=== PATIENT | female | born 1935 | race Caucasian/White ===

== ENCOUNTER 2017-03-21 20:22 | Emergency (ER) | payer MEDICARE, OTHER ==
--- NOTE | 2017-03-21 20:51 | ERNOTE ---
Back Pain ER HPI Time Seen by Provider: 03/21/17 20:40 Source: patient, family Immunizations: IMMUNIZATION HX Immunizations Up to Date No History of Influenza Vaccine No Hx Pneumococcal Vaccination No Allergies/Adverse Reactions: Allergies alendronate sodium [From Fosamax] Allergy (Verified 03/21/17 20:41) clindamycin HCl [From Cleocin] Allergy (Verified 03/21/17 20:41) clindamycin palmitate HCl [From Cleocin] Allergy (Verified 03/21/17 20:41) clindamycin phosphate [From Cleocin] Allergy (Verified 03/21/17 20:41) metronidazole [From Flagyl] Allergy (Verified 03/21/17 20:41) Sulfa (Sulfonamide Antibiotics) Allergy (Verified 03/21/17 20:41) Home Medications: HOME MEDICATIONS Clopidogrel Bisulfate [Clopidogrel] 75 mg PO DAILY 10/15/13 [Last Taken Unknown] Isosorbide Mononitrate [Imdur] 60 mg PO BID 10/15/13 [Last Taken Unknown] Lovastatin 40 mg PO HS 10/15/13 [Last Taken Unknown] Metoprolol Tartrate [Lopressor] 50 mg PO BID 10/15/13 [Last Taken Unknown] Nitroglycerin [Nitrostat] 0.4 mg SL [id number] PRN 10/15/13 [Last Taken Unknown] Polyethylene Glycol 3350 [Miralax] 1 appl PO DAILY 10/15/13 [Last Taken Unknown] Topiramate [Topamax] 50 mg PO BID 10/15/13 [Last Taken Unknown] Aspirin/Calcium Carbonate/Mag [Aspirin Buffered 325 mg Tab] 325 mg PO DAILY 10/02 [Last Taken Unknown] Cholecalciferol (Vitamin D3) [Vitamin D3] 1,000 unit PO DAILY 08/29/14 [Last Taken Unknown] Cyanocobalamin [Vitamin B-12] 1,000 mcg PO DAILY 08/29/14 [Last Taken Unknown] Levothyroxine Sodium [Synthroid] 50 mcg PO DAILY 08/29/14 [Last Taken Unknown] Famotidine [Pepcid] 40 mg PO DAILY 04/30/15 [Last Taken Unknown] glipiZIDE [Glucotrol Xl] 5 mg PO DAILY 04/30/15 [Last Taken Unknown] Ranitidine HCl [Zantac] 150 mg PO BID #60 tab 05/03/16 [Last Taken Unknown] Folic Acid 1 mg PO DAILY 06/03/16 [Last Taken Unknown] diphenhydrAMINE HCL [Benadryl Elixir] 2.5 ml PO Q6H PRN #120 ml 06/03/16 [Last Taken Unknown] metFORMIN HCL [Metformin HCl ER] 500 mg PO BID 09/07/16 [Last Taken Unknown] tiZANidine HCL [Tizanidine HCl] 2 mg PO TID PRN 09/07/16 [Last Taken Unknown] HYDROmorphone HCL [Dilaudid] 1 mg PO QID PRN #30 tab 11/07/16 [Last Taken Unknown] Narrative: pt slipped two days ago but did NOT fall. since then she has had some back pain since then in the mid/low back region. 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 pain is constant and she has no dysuria hematuria or urinary urgency. Review of Systems - Review of Systems Constitutional: Present: no symptoms reported EYE: Present: no symptoms reported ENT: Present: no symptoms reported Respiratory: Present: no symptoms reported Cardiology: Present: no symptoms reported Gastrointestinal/Abdominal: Present: no symptoms reported Genitourinary: Present: no symptoms reported Musculoskeletal: Present: See HPI - Patient's Past Medical History Patient History - Medical: Chronic Pain, Diabetes Type 2, GERD, Headache, Osteoarthritis, Osteoporosis, Other Patient History - Cardiac/Respiratory: Hypertension, Hyperlipidemia, Myocardial Infarction Patient History - Cancer: Skin Patient History - Surgical Procedures: Appendectomy, Back Surgery, Cataracts, Cholecystectomy, Colonoscopy, Cardiac stent, D & C, EGD, T & A, Other Patient History - Other: None LMP (females 10-50): Menopausal - Social History Living Situations: home Abuse History: No History of abuse Psych History: No pertinent hx Does anyone smoke in the home?: No Alcohol Use: none Drug Use: none - Immunizations Immunizations Up to Date: No Hx Pneumococcal Vaccination: No History of Influenza Vaccine: No Physical Exam - Physical Exam General Appearance: Present: wd/wn, alert, no apparent distress - thin and pale but in no distress Ears, Nose, Throat: Present: normal ENT inspection, normal except - - she appears to have tremors of the lips like tardive dyskenesia but when asked she states it is normal for her Neck: Present: normal inspection, nontender Respiratory: Present: no respiratory distress, normal breath sounds, no accessory muscle use Cardiovascular/Chest: Present: regular rate, rhythm, no murmur, normal peripheral pulses Back Exam: Present: normal inspection, normal range of motion - tender when I palpate the lumbar and thoracic areas but no crepitus or step off or bruising noted. Extremity Exam: Present: normal inspection ED Progress - Vital Signs Patient's Vital Signs:: I have reviewed the patient's vital signs. Vital Signs: Vital Signs 03/21/17 20:35 Temperature 37.3 C Pulse Rate 73 Respiratory 16 Rate Blood Pressure 162/71 O2 Sat by Pulse 100 Oximetry - X-Ray X-Ray #1 X-Ray: thoracic and lumbar Xray - DJD no fractures Interpretation: Interp. by me - Progress/Reassessment Chief Complaint: Back Pain Departure Clinical Impression: Back pain Qualifiers: Back pain location: low back pain Chronicity: chronic Back pain laterality: bilateral Sciatica presence: without sciatica Qualified Code(s): M54.5 - Low back pain; G89.29 - Other chronic pain - Departure Disposition: Home self-care Condition: Good Referrals: William Bueno MD [Primary Care Provider] -
--- OUTSIDE RECORDS SUMMARY | 2017-03-21 21:06 | XMS REPORT | Continuity of Care Document ---
:1935 Author Organization [facility] ([facility]) Address [address] [place] [address] Phone [phone] Care Team Providers Name Role Phone William Pugh Primary Care Provider [phone] Source Comments This disclosure is being made pursuant to the Care Everywhere program, applicable federal and state laws, and may not contain all informaitonavailable regarding this patient.[facility] ([facility]) Active Allergies and Adverse Reactions Allergen Noted Date Severity Reactions Comments Acetaminophen 04/12/2010 Pruritus Hydrocodone 04/12/2010 Pruritus Methocarbamol 04/12/2010 Pruritus Metronidazole 04/12/2010 Pruritus,Chest pain Morphine 04/12/2010 Pruritus Naproxen Sodium 04/19/2010 Pruritus Oxycodone 04/12/2010 Pruritus Pentazocine Lactate 04/12/2010 Pruritus Propoxyphene 04/12/2010 Pruritus Sulfa (Sulfonamide Antibiotics) 04/12/2010 Pruritus Sulfacetamide Sodium 04/12/2010 Pruritus Tramadol 04/12/2010 Pruritus Current Medications Prescription Sig. Disp. Refills Start Date End Date Status aspirin 81 mg tablet Take 81 mg by mouth Active daily. clopidogrel (PLAVIX) Take 75 mg by mouth Active 75 mg tablet daily. furosemide (LASIX) 20 Take 20 mg by mouth Active mg tablet 2 times daily. glyBURIDE (DIABETA) 5 Take 5 mg by mouth Active mg tablet every morning with breakfast. isosorbide Take 60 mg by mouth Active mononitrate (IMDUR) Every morning. 60 mg CR tablet lovaSTATIN (MEVACOR) Take 40 mg by mouth Active 40 mg tablet every evening. metFORMIN (GLUCOPHAGE Take 500 mg by mouth Active XR) 500 mg XR tablet daily. metoPROLol (TOPROL Take 50 mg by mouth Active XL) 50 mg XL tablet daily. nitroglycerin place 0.4 mg under Active (NITROSTAT) 0.4 mg SL the tongue every 5 tablet minutes as needed. polyethylene glycol Take 17 g by mouth Active 3350 (MIRALAX) 17 daily. gram packet gatifloxacin (ZYMAR) instill 1 Drop onto 1 Bottle 0 04/19/2010 Active 0.3 % ophthalmic the right eye 4 solution times daily. Indications: post-op brimonidine (ALPHAGAN instill 1 Drop onto 1 Bottle 1 04/20/2010 Active P) 0.1 % ophthalmic the right eye 3 solution times daily. Indications: Ocular Hypertension HYDROcodone-acetamino Take 1 Tab by mouth 10 Tab 0 04/20/2010 Active phen (LORTAB) 5-500 every 6 hours as mg per tablet needed. Indications: Pain prednisoLONE acetate instill 1 Drop onto Active (PRED FORTE) 1 % the right eye every ophthalmic suspension 1 hour. Active Problems Not on file Social History Tobacco Use Types Packs/Day Years Used Date Never Smoker Alcohol Use Drinks/Week oz/Week Comments No Last Filed Vital Signs Vital Sign Reading Time Taken Blood Pressure 148/64 04/19/2010 4:30 PM CDT Pulse 64 04/19/2010 4:30 PM CDT Temperature 36.2 C (97.2 F) 04/19/2010 1:05 PM CDT Respiratory Rate 16 04/19/2010 4:30 PM CDT Height 1.56 m (5' 1.42") 04/19/2010 8:31 AM CDT Weight 66.679 kg (147 lb) 04/19/2010 8:31 AM CDT Body Mass Index 27.4 04/19/2010 8:31 AM CDT Oxygen Saturation 91% 04/19/2010 3:00 PM CDT Plan of Care Health Maintenance Due Date Last Done Comments Hepatitis B Vaccine (1 of 3 - Primary Series) 1935 Tdap Vaccine 1946 Lipid Disorder Screening 1954 Td Vaccine 1953 Colonoscopy 1986 Zoster Vaccine 1996 Osteoporosis Screening (DXA Bone Density) 2001 Pneumococcal Vaccine (1 of 2 - PCV13) 2001 Influenza Vaccine: Seasonal (#1) 06/19/2016 Results from Last 3 Months Not on file
--- OUTSIDE RECORDS SUMMARY | 2017-03-21 21:06 | XMS REPORT | Continuity of Care Document ---
:1935 Author Organization [facility] [place] [address] Care Team Providers Name Role Phone William Pugh Primary Care Provider [phone] Source Comments This disclosure is being made pursuant to the GEOCOMtms program and may contain all information available regarding this patient.[facility] Active Allergies and Adverse Reactions Allergen Noted Date Severity Reactions Comments Acetaminophen 12/27/2016 Low Itching Gabapentin 12/27/2016 Low Diarrhea Hydrocodone 12/27/2016 Low Itching Methocarbamol 12/27/2016 Low Itching Metronidazole 01/27/2015 Low Itching,Rash AKA flagyl Morphine 12/27/2016 Low Itching Naproxen Sodium 12/27/2016 Low Itching Oxycodone 12/27/2016 Low Itching Pentazocine Lactate 12/27/2016 Low Itching Propoxyphene 12/27/2016 Low Itching Sulfa Antibiotics 01/27/2015 Low Itching Sulfacetamide Sodium 12/27/2016 Low Itching Tramadol 01/27/2015 Low Itching Current Medications Be aware that medications may not be up to date as of this document. Alwaysverify current medications with the patient. Prescription Sig. Disp. Refills Start Date End Date Status clopidogrel (PLAVIX) 75 Take 75 mg by mouth Active MG tablet daily. topiramate (TOPAMAX) 25 Take 25 mg by mouth Active MG tablet 2 (two) times daily. lovastatin (MEVACOR) 40 Take 40 mg by mouth Active MG tablet nightly. isosorbide mononitrate Take 60 mg by mouth 09/29/2011 Active (IMDUR) 60 MG 24 hr daily. tablet ranitidine (ZANTAC) 150 Take 150 mg by 11/16/2011 Active MG tablet mouth 2 (two) times daily. metFORMIN (GLUCOPHAGE) Take 500 mg by Active 500 MG tablet mouth 2 (two) times daily. levothyroxine (SYNTHROID, Take 25 mcg by Active LEVOTHROID) 25 MCG tablet mouth daily. cyanocobalamin 2000 MCG Take 1 tablet by Active tablet mouth daily. aspirin 325 MG tablet Take 325 mg by Active mouth daily. furosemide (LASIX) 20 MG Take 20 mg by mouth Active tablet daily. FOLIC ACID PO Take by mouth. Active CALCIUM-VITAMIN D PO Take by mouth. Active famotidine (PEPCID) 20 MG 05/20/2016 Active tablet NITROSTAT 0.[address] 1 tablet 11 04/28/2016 Active tablet under tongue every 5 minutes for 3 doses. If no relief call 911 topiramate (TOPAMAX) 50 05/20/2016 Active MG tablet aspirin low dose Chew 81 mg by Active (ASPIRIN) 81 MG CHEW mouth. brimonidine (ALPHAGAN P) 1 drop. 04/20/2010 Active 0.1 % SOLN glyBURIDE (DIABETA) 5 MG Take 5 mg by mouth. Active tablet hydrocodone-acetaminophen Take by mouth. 04/20/2010 Active (VICODIN) 5-500 MG per tablet metoprolol succinate Take 50 mg by Active (TOPROL-XL) 50 MG 24 hr mouth. tablet nitroGLYCERIN (NITROSTAT) Place 0.4 mg under Active 0.3 MG SL tablet the tongue. amitriptyline (ELAVIL) 10 11/27/2016 Active MG tablet doxycycline (MONODOX) 100 Take 100 mg by 0 11/23/2016 Active MG capsule mouth daily. glipiZIDE (GLUCOTROL) 5 12/11/2016 Active MG tablet HYDROmorphone (DILAUDID) Take by mouth 4 0 11/09/2016 Active 2 MG tablet (four) times daily as needed. for pain. mupirocin (BACTROBAN) 2 % APPLY 3 TIMES A DAY 0 10/25/2016 Active ointment polyethylene glycol TAKE ONE CAPFUL BY 11 12/13/2016 Active (MIRALAX) powder MOUTH MIXED IN 8OZ WATER, JUICE, SODA, COFFEE OR TEA TWICE DAILY diphenhydrAMINE Take by mouth 4 Active (BENADRYL) 12.5 MG/5ML (four) times daily elixir as needed for Allergies. glucose blood test strip 1 each by Other Active route as needed for Other. Use as instructed Cholecalciferol (VITAMIN Take by mouth. Active D-3 PO) Active Problems Problem Noted Date Coronary artery disease 03/09/2015 Chest pain 10/15/2013 Overview: Overview: YURI BARR MD Constipation 10/19/2011 Overview: Overview: JARED SIMPSON MD Hyperlipidemia 09/19/2011 Overview: Overview: EDGAR BOWEN CNP Essential hypertension 09/19/2011 Overview: Overview: EDGAR BOWEN CNP Intermediate coronary syndrome (HCC) 09/11/2011 Overview: Overview: YURI BARR MD Most Recent Encounters Date Type Specialty Providers Description 01/01/2017 Orders Only Provider, Not In System 12/27/2016 Initial consult Neurosurgery Analisa Ding NP Spinal stenosis , lumbar region, with neurogenic claudication (Primary Dx); Chronic midline low back pain with left-sided sciatica Social History Tobacco Use Types Packs/Day Years Used Date Never Smoker Last Filed Vital Signs Vital Sign Reading Time Taken Blood Pressure 120/70 12/27/2016 9:56 AM HEBREW CANTOR Pulse 72 12/27/2016 9:56 AM HEBREW CANTOR Temperature 36.1 C (97 F) 12/27/2016 9:56 AM HEBREW CANTOR Respiratory Rate 18 12/27/2016 9:56 AM HEBREW CANTOR Height 1.511 m (4' 11.5") 12/27/2016 9:56 AM HEBREW CANTOR Weight 54.432 kg (120 lb) 12/27/2016 9:56 AM HEBREW CANTOR Body Mass Index 23.84 12/27/2016 9:56 AM HEBREW CANTOR Oxygen Saturation - - Plan of Care Patient Goal Type Goal Blood Pressure Blood Pressure below 140/90 Date Type Specialty Providers Description 04/05/2017 Appointment Cardiology Yuri Barr MD [address] [place] [phone] (Fax) Health Maintenance Due Date Last Done Comments Tetanus/Pertussis (1 - Tdap) 1954 Well Adult Visit 1986 Zoster Vaccine 60+ 1996 Bone Density 2001 Pneumococcal Low/Medium Risk 65+ (1 of 2 - PCV13) 2001 Influenza Immunization (#1) 2016 Results from Last 3 Months Not on file
[2017-03-21] MEDS ORDERED: HYDROcodone/ACETAMINOPHEN 1 EACH TABLET PO ONE (21:38)
[2017-03-21] MEDS ORDERED: HYDROcodone/ACETAMINOPHEN 1 EACH TABLET ONE (21:38)
[2017-03-21 21:51] VITALS: BP 159/69
== END 2017-03-21 21:47 | disposition home or self-care (01) ==
LOC: ER 20:22
DX: M54.5 Low back pain (principal); G89.29 Other chronic pain; Z85.828 Personal history of other malignant neoplasm of skin; W18.40XA Slipping, tripping and stumbling without falling, unspecified, initial encounter; Z91.81 History of falling; Y93.9 Activity, unspecified; Y92.9 Unspecified place or not applicable

== ENCOUNTER 2017-09-01 18:00 | Emergency (ER) | payer MEDICARE, OTHER ==
[2017-09-01] MEDS ORDERED: MORPHINE SULFATE 2 MG/ML DISP.SYRIN IV ONE (18:12)
[2017-09-01] MEDS ORDERED: MORPHINE SULFATE 2 MG/ML DISP.SYRIN ONE (18:13)
--- NOTE | 2017-09-01 18:17 | ERNOTE ---
Upper Extremity HPI - Narrative Date of Service: 09/01/17 - General Time Seen by Provider: 09/01/17 18:05 Source: patient Exam Limitations: no limitations - Immun/Allergies/Home Medications Immunizations: IMMUNIZATION HX Immunizations Up to Date Yes History of Influenza Vaccine No Hx Pneumococcal Vaccination No Allergies/Adverse Reactions: Allergies Allergy/AdvReac Type Severity Reaction Status Date / Time alendronate sodium Allergy Verified 09/01/17 18:11 [From Fosamax] clindamycin HCl Allergy Verified 09/01/17 18:11 [From Cleocin] clindamycin palmitate HCl Allergy Verified 09/01/17 18:11 [From Cleocin] clindamycin phosphate Allergy Verified 09/01/17 18:11 [From Cleocin] metronidazole [From Flagyl] Allergy Verified 09/01/17 18:11 Sulfa (Sulfonamide Allergy Verified 09/01/17 18:11 Antibiotics) Home Medications: HOME MEDICATIONS Aspirin 325 mg PO DAILY 09/01/17 [Last Taken Unknown] Calcium Carbonate [Calcium] 600 mg PO DAILY 09/01/17 [Last Taken Unknown] Cholecalciferol (Vitamin D3) [Vitamin D3] 1,000 unit PO DAILY 09/01/17 [Last Taken Unknown] Clopidogrel Bisulfate [Plavix] 75 mg PO DAILY 09/01/17 [Last Taken Unknown] Cyanocobalamin [Vitamin B-12] 1,000 mcg PO DAILY 09/01/17 [Last Taken Unknown] Diphenhydramine HCl 25 mg PO TID 09/01/17 [Last Taken Unknown] Folic Acid 1 mg PO DAILY 09/01/17 [Last Taken Unknown] HYDROcodone/ACETAMINOPHEN [[place] 5-325] 1 tab PO TID 09/01/17 [Last Taken Unknown] Isosorbide Mononitrate [Imdur] 60 mg PO BID 09/01/17 [Last Taken Unknown] Levothyroxine Sodium [Synthroid] 50 mcg PO DAILY 09/01/17 [Last Taken Unknown] Lovastatin 40 mg PO HS 09/01/17 [Last Taken Unknown] Metoprolol Tartrate [Lopressor] 50 mg PO BID 09/01/17 [Last Taken Unknown] Nitroglycerin [Nitrostat] 0.4 mg SL Q5MIN PRN 09/01/17 [Last Taken Unknown] Polyethylene Glycol 3350 [Miralax] 17 gm PO BID 09/01/17 [Last Taken Unknown] Ranitidine HCl [Zantac] 150 mg PO BID 09/01/17 [Last Taken Unknown] Topiramate [Topamax] 100 mg PO BID 09/01/17 [Last Taken Unknown] glipiZIDE [Glipizide] 0.5 tab PO DAILY 09/01/17 [Last Taken Unknown] - History of Present Illness Narrative: patient comes in for left arm pain which began at 5 pm. she took a nitro and it did not help. She has a very strong history of coronary artery disease status post [place] remotely with multiple stents. Review of Systems - Review of Systems Constitutional: Present: no symptoms reported EYE: Present: no symptoms reported ENT: Present: no symptoms reported Respiratory: Present: no symptoms reported Cardiology: Present: no symptoms reported Gastrointestinal/Abdominal: Present: no symptoms reported Genitourinary: Present: no symptoms reported Musculoskeletal: Present: See HPI - Patient's Past Medical History Patient History - Medical: Chronic Pain, Diabetes Type 2, GERD, Headache, Osteoarthritis, Osteoporosis, Other Patient History - Cardiac/Respiratory: Hypertension, Hyperlipidemia, Myocardial Infarction Patient History - Cancer: Skin Patient History - Surgical Procedures: Appendectomy, Back Surgery, Cataracts, Cholecystectomy, Colonoscopy, Cardiac stent, D & C, EGD, T & A, Other Patient History - Other: None - Social History Living Situations: other Abuse History: No History of abuse Psych History: No pertinent hx Smoking Status: Never smoker Have you smoked in the past 12 months: No Do you dip or chew tobacco: No Alcohol Use: none Drug Use: none - Immunizations Immunizations Up to Date: Yes Hx Pneumococcal Vaccination: No History of Influenza Vaccine: No Physical Exam - Physical Exam General Appearance: Present: wd/wn, alert, no apparent distress Head Exam: Present: normal inspection, no evidence of injury Ears, Nose, Throat: Present: normal ENT inspection Neck: Present: normal inspection, nontender Respiratory: Present: no respiratory distress, normal breath sounds, no accessory muscle use, chest nontender, lungs clear Cardiovascular/Chest: Present: regular rate, rhythm, no murmur, normal peripheral pulses Gastrointestinal/Abdominal: Present: normal bowel sounds, nontender, nondistended Extremity Exam: Present: other - no abnormality noted upon examination of the left upper extremity patient denies any chest pains whatsoever. Neurological Exam: Present: alert, oriented, normal mood/affect ED Progress - Results and Orders Patient's Lab Results:: I have reviewed the patient's lab results. - Vital Signs Patient's Vital Signs:: I have reviewed the patient's vital signs. Vital Signs: Vital Signs 09/01/17 18:05 Temperature 37.4 C Pulse Rate 88 Respiratory 16 Rate Blood Pressure 174/63 O2 Sat by Pulse 98 Oximetry - EKG EKG: NSR - X-Ray X-Ray #3 X-Ray: forearm - Progress/Reassessment Chief Complaint: Upper Extremity Injury/Problem Plan - Plan Plan: This patient's symptoms I doubt are secondary to cardiac etiology. Her EKG is normal chest x-ray normal arm x-ray normal. Her arm pain is completely resolved she never had chest pain or jaw pain. Departure Clinical Impression: Arm pain Qualifiers: Laterality: left Qualified Code(s): M79.602 - Pain in left arm - Departure Disposition: Home self-care Condition: Good Instructions: Osteoarthritis Referrals: William Bueno MD [Primary Care Provider] -
[2017-09-01 18:22] LABS: Hematocrit 33.6 % (37.0-47.0); Hemoglobin 11.1 gm/dL (12.5-16.0); Mean Cell Volume 98.2 fl (78-100); Mean Corpuscular Hemoglobin 32.5 pg (27-31); Mean Platelet Volume 8.3 fl (6.0-9.5); Neutrophil # 3.7 K/mm3 (1.3-6.0); Neutrophil % 50.9 % (42-75.0); Platelet Count 244 K/mm3 (150-450); Red Blood Count 3.42 M/mm3 (4.2-5.4); Red Cell Distribution Width 12.4 % (11.5-14.0); White Blood Count 7.2 K/mm3 (4.0-10.5)
[2017-09-01 18:48] LABS: ALT 20 U/L (19-67); AST 17 U/L (0-48); Albumin * 3.9 gm/dl (3.4-5.0); Alkaline Phosphatase * 100 U/L (50-170); Anion Gap 14.2 mmol/L (6.8-13.8); BUN/Creatinine Ratio 13.1 (9.0-21.6); Bilirubin, Total 0.2 mg/dL (0.0-1.1); Blood Urea Nitrogen 14 mg/dL (3-23); Ca. Corrected For Albumin 8.4 mg/dL (8.4-10.2); Calcium * 8.6 mg/dL (7.9-10.9); Carbon Dioxide 25.5 mmol/L (24-32.6); Chloride 100 mmol/L (97-106); Glucose * 151 mg/dL (70-110); Potassium 3.7 mmol/L (3.4-4.6); Sodium 136 mmol/L (132-142); Total Protein 7.7 gm/dL (6.2-8.2); Troponin I 0.022 ng/ml (0.00-0.10)
[2017-09-01 19:27] VITALS: BP 143/59
== END 2017-09-01 19:19 | disposition home or self-care (01) ==
LOC: ER 18:00
DX: M79.602 Pain in left arm (principal); K21.9 Gastro-esophageal reflux disease without esophagitis; I10 Essential (primary) hypertension; E11.9 Type 2 diabetes mellitus without complications; Z85.820 Personal history of malignant melanoma of skin

== ENCOUNTER 2017-10-22 11:50 | Emergency (ER) | payer MEDICARE, OTHER ==
[2017-10-22 11:58] VITALS: BP 167/69
[2017-10-22 12:17] LABS: Hematocrit 33.2 % (37.0-47.0); Mean Cell Volume 99.4 fl (78-100); Mean Corpuscular Hemoglobin 32.9 pg (27-31); Mean Corpuscular Hgb Conc 33.1 g/dl (32-36); Mean Platelet Volume 8.7 fl (6.0-9.5); Neutrophil # 3.4 K/mm3 (1.3-6.0); Neutrophil % 58.1 % (42-75.0); Platelet Count 195 K/mm3 (150-450); Red Blood Count 3.34 M/mm3 (4.2-5.4); Red Cell Distribution Width 12.2 % (11.5-14.0); White Blood Count 5.9 K/mm3 (4.0-10.5)
[2017-10-22 12:25] LABS: Urine Bilirubin Negative (NEGATIVE); Urine Ketone Negative (NEGATIVE); Urine Protein Negative (NEGATIVE); Urine Specific Gravity 1.015 SP.GR. (1.005-1.010); Urine Urobilinogen Normal (NORMAL)
[2017-10-22 12:32] LABS: Albumin * 3.9 gm/dl (3.4-5.0); Anion Gap 10.9 mmol/L (6.8-13.8); BUN/Creatinine Ratio 11.7 (9.0-21.6); Bilirubin, Total 0.3 mg/dL (0.0-1.1); Ca. Corrected For Albumin 8.1 mg/dL (8.4-10.2); Calcium * 8.3 mg/dL (7.9-10.9); Carbon Dioxide 27.1 mmol/L (24-32.6); Total Protein 7.3 gm/dL (6.2-8.2)
[2017-10-22 12:40] LABS: Urine Appearance Cloudy; Urine Blood 10 /ul (NEGATIVE); Urine Color Yellow; Urine Nitrite Positive (NEGATIVE)
[2017-10-22 12:41] LABS: Urine Bacteria 4+; Urine RBC 0-5 /hpf (0-5); Urine WBC 25-50 /hpf (0-5)
[2017-10-22] MEDS ORDERED: AMOX TR/POTASSIUM CLAVULANATE 875 MG TABLET PO ONE (13:33)
--- NOTE | 2017-10-22 13:35 | ERNOTE ---
Abdominal HPI - General Chief Complaint: Abdominal Pain Time Seen by Provider: 10/22/17 13:22 Source: patient Exam Limitations: no limitations - Immun/Allergies/Home Medications Immunizatons: IMMUNIZATION HX Immunizations Up to Date Yes History of Influenza Vaccine No Hx Pneumococcal Vaccination No Allergies/Adverse Reactions: Allergies alendronate sodium [From Fosamax] Allergy (Verified 10/22/17 11:57) clindamycin HCl [From Cleocin] Allergy (Verified 10/22/17 11:57) clindamycin palmitate HCl [From Cleocin] Allergy (Verified 10/22/17 11:57) clindamycin phosphate [From Cleocin] Allergy (Verified 10/22/17 11:57) metronidazole [From Flagyl] Allergy (Verified 10/22/17 11:57) Sulfa (Sulfonamide Antibiotics) Allergy (Verified 10/22/17 11:57) Home Medications: HOME MEDICATIONS Aspirin 325 mg PO DAILY 09/01/17 [Last Taken Unknown] Calcium Carbonate [Calcium] 600 mg PO DAILY 09/01/17 [Last Taken Unknown] Cholecalciferol (Vitamin D3) [Vitamin D3] 1,000 unit PO DAILY 09/01/17 [Last Taken Unknown] Clopidogrel Bisulfate [Plavix] 75 mg PO DAILY 09/01/17 [Last Taken Unknown] Cyanocobalamin [Vitamin B-12] 1,000 mcg PO DAILY 09/01/17 [Last Taken Unknown] Folic Acid 1 mg PO DAILY 09/01/17 [Last Taken Unknown] HYDROcodone/ACETAMINOPHEN [[place] 5-325] 1 tab PO TID 09/01/17 [Last Taken Unknown] Isosorbide Mononitrate [Imdur] 60 mg PO BID 09/01/17 [Last Taken Unknown] Levothyroxine Sodium [Synthroid] 50 mcg PO DAILY 09/01/17 [Last Taken Unknown] Lovastatin 40 mg PO HS 09/01/17 [Last Taken Unknown] Metoprolol Tartrate [Lopressor] 50 mg PO BID 09/01/17 [Last Taken Unknown] Nitroglycerin [Nitrostat] 0.4 mg SL Q5MIN PRN 09/01/17 [Last Taken Unknown] Polyethylene Glycol 3350 [Miralax] 17 gm PO BID 09/01/17 [Last Taken Unknown] Ranitidine HCl [Zantac] 150 mg PO BID 09/01/17 [Last Taken Unknown] Topiramate [Topamax] 100 mg PO BID 09/01/17 [Last Taken Unknown] glipiZIDE [Glipizide] 0.5 tab PO DAILY 09/01/17 [Last Taken Unknown] Amox Tr/Potassium Clavulanate [Augmentin 875-125 Tablet] 875 mg PO Q12H #20 tab 10/22/17 [Last Taken Unknown] - History of Present Illness Narrative: Patient thinks that she has diverticulitis, she started yesterday morning with lower abdominal pain (left more than right) that reminds her of a prior episode , denies any nausea,vomiting or diarrhea. Date (Duration): 10/21/17 Timing: constant Quality: mild Activities at Onset: none Modifying Factors - (Improves): Present: rest Modifying Factors - (Worsens): Absent: breathing, coughing, movement Associated Symptoms: Absent: headache, back pain, diaphoresis, diarrhea-gross blood, diarrhea-mucous, fever/chills, heartburn, nausea, vomiting, shortness of breath Prior Abdominal Problems: Present: similar symptoms Prior Treatment: Absent: recently seen, currently on antibiotics Review of Systems - Review of Systems Constitutional: Absent: recent illness, fever ENT: Absent: nose congestion, sore throat Respiratory: Absent: shortness of breath Cardiology: Absent: chest pain Gastrointestinal/Abdominal: Present: See HPI, abdominal pain. Absent: nausea Genitourinary: Absent: no symptoms reported Musculoskeletal: Absent: no symptoms reported Skin: Absent: rash Neurological: Absent: headache - Patient's Past Medical History Patient History - Medical: Chronic Pain, Diabetes Type 2, GERD, Headache, Osteoarthritis, Osteoporosis, Other Patient History - Cardiac/Respiratory: Hypertension, Hyperlipidemia, Myocardial Infarction Patient History - Cancer: Skin Patient History - Surgical Procedures: Appendectomy, Back Surgery, Cataracts, Cholecystectomy, Colonoscopy, Cardiac stent, D & C, EGD, T & A, Other Patient History - Other: None - Social History Living Situations: home Abuse History: No History of abuse Psych History: No pertinent hx - Immunizations Immunizations Up to Date: Yes Hx Pneumococcal Vaccination: No History of Influenza Vaccine: No Physical Exam - Physical Exam General Appearance: Present: wd/wn, alert, no apparent distress Respiratory: Present: no respiratory distress, normal breath sounds, no accessory muscle use, lungs clear Cardiovascular/Chest: Present: regular rate, rhythm, no murmur Gastrointestinal/Abdominal: Present: normal bowel sounds, nondistended, soft, tenderness - LLQ (moderate). Absent: guarding, rebound Extremity Exam: Present: no edema Neurological Exam: Present: alert, oriented, normal mood/affect Skin Exam: Present: normal color, warm/dry ED Progress - Results and Orders Patient's Lab Results:: I have reviewed the patient's lab results. - Vital Signs Patient's Vital Signs:: I have reviewed the patient's vital signs. Vital Signs: Vital Signs 10/22/17 11:53 Temperature 36.6 C Pulse Rate 65 Respiratory 12 Rate Blood Pressure 167/69 O2 Sat by Pulse 98 Oximetry - Progress/Reassessment Chief Complaint: Abdominal Pain Progress Note-Subjective: 10/22/17 13:33 discussed diagnosis with patient. As symptoms mild will treat with out patient antibiotics, patient prefers not to have CT at this time. As patient allergic to flagyl will treat with augmentin Departure Clinical Impression: Diverticulitis Qualifiers: Diverticulitis site: unspecified part of intestinal tract Diverticulitis bleeding: without bleeding Diverticulitis complication: unspecified complication status Qualified Code(s): K57.92 - Diverticulitis of intestine, part unspecified, without perforation or abscess without bleeding - Departure Disposition: Home self-care Condition: Stable Instructions: Diverticulitis, [id number] Additional Instructions: follow up with your doctor as scheduled Referrals: William Bueno MD [Primary Care Provider] - Prescriptions: Amox Tr/Potassium Clavulanate [Augmentin 875-125 Tablet] 875 mg PO Q12H #20 tab
[2017-10-22] MEDS ORDERED: AMOX TR/POTASSIUM CLAVULANATE 875 MG TABLET ONE (13:52)
== END 2017-10-22 14:00 | disposition home or self-care (01) ==
LOC: ER 11:50
DX: K57.92 Diverticulitis of intestine, part unspecified, without perforation or abscess without bleeding (principal); Z85.828 Personal history of other malignant neoplasm of skin; E11.9 Type 2 diabetes mellitus without complications; I25.2 Old myocardial infarction; I10 Essential (primary) hypertension; Z95.5 Presence of coronary angioplasty implant and graft; K21.9 Gastro-esophageal reflux disease without esophagitis; E78.5 Hyperlipidemia, unspecified

== ENCOUNTER 2017-11-16 10:36 | Emergency (ER) | payer MEDICARE, OTHER ==
--- NOTE | 2017-11-16 11:36 | ERNOTE ---
Abdominal HPI - Narrative Date of Service: 11/16/17 - General Chief Complaint: Abdominal Pain Time Seen by Provider: 11/16/17 11:23 Source: patient, RN notes reviewed Exam Limitations: no limitations - Immun/Allergies/Home Medications Immunizatons: IMMUNIZATION HX Immunizations Up to Date Yes History of Influenza Vaccine No Hx Pneumococcal Vaccination No Allergies/Adverse Reactions: Allergies metronidazole [From Flagyl] Allergy (Unknown, Verified 11/16/17 10:46) alendronate sodium [From Fosamax] Adverse Reaction (Mild, Verified 11/16/17 10: 46) ABD PAIN clindamycin HCl [From Cleocin] Adverse Reaction (Mild, Verified 11/16/17 10:46) GI UPSET clindamycin palmitate HCl [From Cleocin] Adverse Reaction (Mild, Verified 10:46) GI UPSET clindamycin phosphate [From Cleocin] Adverse Reaction (Mild, Verified 11/16/17 10:46) GI UPSET gabapentin Adverse Reaction (Mild, Verified 11/16/17 10:46) BOWEL INCONTINENCE pregabalin [From Lyrica] Adverse Reaction (Mild, Verified 11/16/17 10:46) LOOSE STOOLS Sulfa (Sulfonamide Antibiotics) Adverse Reaction (Mild, Verified 11/16/17 10:46) Itching tramadol Adverse Reaction (Mild, Verified 11/16/17 10:46) Itching Home Medications: HOME MEDICATIONS Aspirin 325 mg PO DAILY 09/01/17 [Last Taken Unknown] Cholecalciferol (Vitamin D3) [Vitamin D3] 1,000 unit PO DAILY 09/01/17 [Last Taken Unknown] Clopidogrel Bisulfate [Plavix] 75 mg PO DAILY 09/01/17 [Last Taken Unknown] Cyanocobalamin [Vitamin B-12] 1,000 mcg PO DAILY 09/01/17 [Last Taken Unknown] Folic Acid 1 mg PO DAILY 09/01/17 [Last Taken Unknown] HYDROcodone/ACETAMINOPHEN [[place] 5-325] 1 tab PO TID PRN 09/01/17 [Last Taken Unknown] Isosorbide Mononitrate [Imdur] 60 mg PO BID 09/01/17 [Last Taken Unknown] Levothyroxine Sodium [Synthroid] 50 mcg PO DAILY 09/01/17 [Last Taken Unknown] Lovastatin 40 mg PO HS 09/01/17 [Last Taken Unknown] Metoprolol Tartrate [Lopressor] 50 mg PO BID 09/01/17 [Last Taken Unknown] Nitroglycerin [Nitrostat] 0.4 mg SL [id number] PRN 09/01/17 [Last Taken Unknown] Polyethylene Glycol 3350 [Miralax] 17 gm PO BID 09/01/17 [Last Taken Unknown] Ranitidine HCl [Zantac] 150 mg PO BID 09/01/17 [Last Taken Unknown] glipiZIDE [Glipizide] 0.5 tab PO DAILY 09/01/17 [Last Taken Unknown] Blood-Glucose Meter [Blood Glucose Monitoring] 1 each MC DAILY 11/06/17 [Last Taken Unknown] Calcium Carbonate 600 mg PO DAILY 11/06/17 [Last Taken Unknown] Topiramate [Topamax] 25 mg PO BID 11/06/17 [Last Taken Unknown] Topiramate [Topamax] 50 mg PO BID 11/06/17 [Last Taken Unknown] Moxifloxacin HCl [Avelox] 400 mg PO DAILY 11/07/17 [Last Taken Unknown] Ciprofloxacin HCl [Cipro] 500 mg PO BID #14 tablet 11/16/17 [Last Taken Unknown] - Pain Score Pain Score #1 Pain Score: 0 - History of Present Illness Narrative: 82 year old female presents to the ED from home by private vehicle for abdominal pain that began last night. She had diarrhea once last evening and also reports having some nausea at that time. She did not have any pain this morning until she tried to drink some water, which caused pain again. She does not currently have any pain. She has not eaten anything today. Date (Duration): 11/15/17 Timing: resolved prior to arrival Activities at Onset: none Prior Treatment: Absent: currently on antibiotics Review of Systems - Review of Systems Constitutional: Absent: fever, chills, malaise EYE: Present: no symptoms reported ENT: Present: no symptoms reported Respiratory: Absent: shortness of breath, cough Cardiology: Absent: chest pain, edema Gastrointestinal/Abdominal: Present: abdominal pain, eating less, drinking less. Absent: vomiting, constipation Genitourinary: Absent: frequency, dysuria Musculoskeletal: Absent: back pain, muscle pain Skin: Absent: rash, lesions, lumps Neurological: Absent: headache, dizziness/light-headedness Endocrine: Present: no symptoms reported Hematologic/Lymphatic: Present: no symptoms reported Psych: Present: no symptoms reported - Patient's Past Medical History Patient History - Medical: Chronic Pain, Diabetes Type 2, GERD, Headache, Osteoarthritis, Osteoporosis Patient History - Cardiac/Respiratory: Hypertension, Hyperlipidemia, Myocardial Infarction Patient History - Cancer: Skin Patient History - Surgical Procedures: Appendectomy, Back Surgery, Cataracts, Cholecystectomy, Colonoscopy, Cardiac stent, D & C, EGD, T & A, Other Patient History - Other: None - Social History Living Situations: home Abuse History: No History of abuse Psych History: No pertinent hx Alcohol Use: none Drug Use: none - Immunizations Immunizations Up to Date: Yes Hx Pneumococcal Vaccination: No History of Influenza Vaccine: No Physical Exam - Physical Exam General Appearance: Present: wd/wn, alert, no apparent distress Head Exam: Present: normal inspection Neck: Present: normal inspection, nontender, supple, full range of motion Respiratory: Present: no respiratory distress, normal breath sounds, no accessory muscle use, lungs clear Cardiovascular/Chest: Present: regular rate, rhythm, no murmur, normal peripheral pulses Gastrointestinal/Abdominal: Present: normal bowel sounds, nondistended, soft, tenderness - Mild, RUQ and RLQ. Absent: guarding, mass Extremity Exam: Present: normal inspection, non-tender, normal range of motion, no edema Neurological Exam: Present: alert, oriented, normal mood/affect, no motor/ sensory deficits Skin Exam: Present: warm/dry, pallor ED Progress - Results and Orders Patient's Lab Results:: I have reviewed the patient's lab results. - Vital Signs Patient's Vital Signs:: I have reviewed the patient's vital signs. Vital Signs: Vital Signs 11/16/17 10:40 Temperature 36.2 C L Pulse Rate 66 Respiratory 12 Rate Blood Pressure 130/54 O2 Sat by Pulse 96 Oximetry - X-Ray X-Ray #1 X-Ray: abdomen Interpretation: Reviewed by me X-ray Comments: Abdomen Flat W/ Upright *: No subdiaphragmatic free air. Patient has scattered air-fluid levels throughout the nondilated colonic segments diffusely throughout. Patient has multiple radiodensities projecting over the abdomen, 2 in the left upper quadrant, one in the pelvis, and multiple numerous 1's in the right lower quadrant. Osseous structures are intact. Degenerative changes of the thoracolumbar spine and bilateral hips noted. IMPRESSION: 1. Abnormal bowel gas pattern suggestive of colitis or other diarrheal disease. 2. Multiple radiodensities within the abdomen as discussed above. Most likely represents radiodense pill fragments within bowel segments. Clinical correlation is advised. Consider radiographic follow-up to document resolution. Electronically signed by Daljit Marti M.D.. - Progress/Reassessment Chief Complaint: Abdominal Pain Progress:: Unchanged Plan - Plan Plan: Labs unremarkable aside from possible UTI. Patient was just treated for a UTI earlier this month and her repeat UA showed resolution. Will treat pending culture. Departure Clinical Impression: UTI (urinary tract infection) Qualifiers: Urinary tract infection type: site unspecified Hematuria presence: without hematuria Qualified Code(s): N39.0 - Urinary tract infection, site not specified Abdominal pain Qualifiers: Abdominal location: unspecified location Qualified Code(s): R10.9 - Unspecified abdominal pain - Departure Disposition: Home Follow Up Needed Condition: Stable Instructions: Abdominal Pain, Adult, [id number] Additional Instructions: Drink plenty of liquids as discussed Follow up to recheck your urine after finishing antibiotics Return to ER if symptoms worsen Prescriptions: Ciprofloxacin HCl [Cipro] 500 mg PO BID #14 tablet
[2017-11-16 11:46] LABS: Hematocrit 36.3 % (37.0-47.0); Hemoglobin 11.9 gm/dL (12.5-16.0); Mean Cell Volume 101.1 fl (78-100); Mean Corpuscular Hemoglobin 33.1 pg (27-31); Mean Corpuscular Hgb Conc 32.8 g/dl (32-36); Mean Platelet Volume 8.5 fl (6.0-9.5); Neutrophil # 2.6 K/mm3 (1.3-6.0); Neutrophil % 75.7 % (42-75.0); Platelet Count 171 K/mm3 (150-450); Red Blood Count 3.59 M/mm3 (4.2-5.4); Red Cell Distribution Width 12.3 % (11.5-14.0); White Blood Count 3.5 K/mm3 (4.0-10.5)
[2017-11-16 11:54] LABS: Urine Appearance Clear; Urine Bilirubin Negative (NEGATIVE); Urine Blood 5 /ul (NEGATIVE); Urine Color Yellow; Urine Ketone Negative (NEGATIVE); Urine Nitrite Negative (NEGATIVE); Urine Protein 30 mg/dL (NEGATIVE); Urine Urobilinogen Normal (NORMAL); Urine pH 6.5 pH (5.0-7.0)
[2017-11-16 11:55] LABS: Urine Bacteria 1+; Urine RBC 0-5 /hpf (0-5); Urine WBC 0-5 /hpf (0-5)
[2017-11-16 11:59] LABS: Albumin * 3.6 gm/dl (3.4-5.0); Anion Gap 13.4 mmol/L (6.8-13.8); BUN/Creatinine Ratio 16.5 (9.0-21.6); Bilirubin, Total 0.3 mg/dL (0.0-1.1); Ca. Corrected For Albumin 8.1 mg/dL (8.4-10.2); Calcium * 8.1 mg/dL (7.9-10.9); Carbon Dioxide 24.6 mmol/L (24-32.6)
[2017-11-16 12:36] VITALS: BP 130/69
== END 2017-11-16 12:45 | disposition home or self-care (01) ==
LOC: ER 10:36
DX: N39.0 Urinary tract infection, site not specified (principal); R10.9 Unspecified abdominal pain; I25.2 Old myocardial infarction; I10 Essential (primary) hypertension; E78.5 Hyperlipidemia, unspecified; K21.9 Gastro-esophageal reflux disease without esophagitis; E11.9 Type 2 diabetes mellitus without complications; Z85.820 Personal history of malignant melanoma of skin

== ENCOUNTER 2018-01-05 18:18 | Observation (INO) | payer MEDICARE, OTHER ==
[2018-01-05] MEDS ORDERED: ACETAMINOPHEN 500 MG TABLET PO ONE (18:51)
[2018-01-05 19:05] LABS: Hematocrit 33.6 % (37.0-47.0); Hemoglobin 11.4 gm/dL (12.5-16.0); Mean Cell Volume 96.8 fl (78-100); Mean Corpuscular Hemoglobin 32.9 pg (27-31); Mean Corpuscular Hgb Conc 33.9 g/dl (32-36); Mean Platelet Volume 8.8 fl (6.0-9.5); Neutrophil # 5.6 K/mm3 (1.3-6.0); Neutrophil % 72.2 % (42-75.0); Platelet Count 167 K/mm3 (150-450); Red Blood Count 3.47 M/mm3 (4.2-5.4); White Blood Count 7.7 K/mm3 (4.0-10.5)
--- NOTE | 2018-01-05 19:17 | ERNOTE ---
<Malik Murillo - Last Filed: 01/05/18 19:12> Date of Service: 01/05/18 Time Seen by Provider: 01/05/18 18:26 Stated Complaint: COUGH Presenting Symptoms:: cough, fever Source: patient Immunizations: IMMUNIZATION HX Immunizations Up to Date No History of Influenza Vaccine No Hx Pneumococcal Vaccination No Allergies/Adverse Reactions: Allergies metronidazole [From Flagyl] Allergy (Unknown, Verified 11/16/17 10:46) alendronate sodium [From Fosamax] Adverse Reaction (Mild, Verified 11/16/17 10: 46) ABD PAIN clindamycin HCl [From Cleocin] Adverse Reaction (Mild, Verified 11/16/17 10:46) GI UPSET clindamycin palmitate HCl [From Cleocin] Adverse Reaction (Mild, Verified 10:46) GI UPSET clindamycin phosphate [From Cleocin] Adverse Reaction (Mild, Verified 11/16/17 10:46) GI UPSET gabapentin Adverse Reaction (Mild, Verified 11/16/17 10:46) BOWEL INCONTINENCE pregabalin [From Lyrica] Adverse Reaction (Mild, Verified 11/16/17 10:46) LOOSE STOOLS Sulfa (Sulfonamide Antibiotics) Adverse Reaction (Mild, Verified 11/16/17 10:46) Itching tramadol Adverse Reaction (Mild, Verified 11/16/17 10:46) Itching Home Medications: HOME MEDICATIONS Aspirin 325 mg PO DAILY 09/01/17 [Last Taken Unknown] Cholecalciferol (Vitamin D3) [Vitamin D3] 1,000 unit PO DAILY 09/01/17 [Last Taken Unknown] Clopidogrel Bisulfate [Plavix] 75 mg PO DAILY 09/01/17 [Last Taken Unknown] Cyanocobalamin [Vitamin B-12] 1,000 mcg PO DAILY 09/01/17 [Last Taken Unknown] Folic Acid 1 mg PO DAILY 09/01/17 [Last Taken Unknown] Isosorbide Mononitrate [Imdur] 60 mg PO BID 09/01/17 [Last Taken Unknown] Levothyroxine Sodium [Synthroid] 50 mcg PO DAILY 09/01/17 [Last Taken Unknown] Lovastatin 40 mg PO HS 09/01/17 [Last Taken Unknown] Metoprolol Tartrate [Lopressor] 50 mg PO BID 09/01/17 [Last Taken Unknown] Nitroglycerin [Nitrostat] 0.4 mg SL [id number] PRN 09/01/17 [Last Taken Unknown] Polyethylene Glycol 3350 [Miralax] 17 gm PO BID 09/01/17 [Last Taken Unknown] Ranitidine HCl [Zantac] 150 mg PO BID 09/01/17 [Last Taken Unknown] glipiZIDE [Glipizide] 0.5 tab PO DAILY 09/01/17 [Last Taken Unknown] Calcium Carbonate 600 mg PO DAILY 11/06/17 [Last Taken Unknown] Topiramate [Topamax] 100 mg PO BID 11/06/17 [Last Taken Unknown] - History of Present Ilness Narrative: patient has been sick with cough and fever for last several days , sharp chest pain Timing: constant, getting worse Severity: moderate Frequency/Possible Cause: Reports: occasional episodes Modifying Factors - Improves: Reports: rest Modifying Factors - Worsens: Reports: coughing, deep breath Associated Symptoms: Reports: chest pain/soreness, sore throat, muscle aches, fever/chills Review of Systems - Narrative Narrative: unremarkable - Review of Systems Constitutional: Present: See HPI, weakness, fatigue, malaise EYE: Present: no symptoms reported ENT: Present: no symptoms reported Respiratory: Present: See HPI, shortness of breath, cough, wheezing Cardiology: Present: chest pain Gastrointestinal/Abdominal: Present: no symptoms reported Genitourinary: Present: no symptoms reported Musculoskeletal: Present: no symptoms reported Skin: Present: no symptoms reported Neurological: Present: no symptoms reported Endocrine: Present: no symptoms reported Hematologic/Lymphatic: Present: no symptoms reported Psych: Present: no symptoms reported All Other Systems: All systems neg except as marked - Narrative Narrative: unremarkable - Patient's Past Medical History Patient History - Medical: Chronic Pain, Diabetes Type 2, GERD, Headache, Osteoarthritis, Osteoporosis Patient History - Cardiac/Respiratory: Hypertension, Hyperlipidemia, Myocardial Infarction Patient History - Cancer: Skin Patient History - Surgical Procedures: Appendectomy, Back Surgery, Cataracts, Cholecystectomy, Colonoscopy, Cardiac stent, D & C, EGD, T & A, Other Patient History - Other: None LMP (females 10-50): Menopausal - Family History Family History:: no untoward family reactions to anesthesia, no familial bleeding tendencies, no family history of clotting disorders, no family history of premature - Social History Living Situations: other Abuse History: No History of abuse Psych History: No pertinent hx Smoking Status: Never smoker Have you smoked in the past 12 months: No Do you dip or chew tobacco: No Alcohol Use: none Drug Use: none - Immunizations Immunizations Up to Date: No Hx Pneumococcal Vaccination: No History of Influenza Vaccine: No Physical Exam - Physical Exam General Appearance: Present: moderate distress Head Exam: Present: normal inspection, no evidence of injury Eye Exam: Normal inspection: bilateral, PERRL: bilateral, EOMI: bilateral Ears, Nose, Throat: Present: normal ENT inspection Neck: Present: normal inspection, nontender Respiratory: Present: respiratory distress, rales, rhonchi, wheezing Cardiovascular/Chest: Present: regular rate, rhythm, no murmur, normal peripheral pulses Peripheral Pulses: N=norm/S=strong/W=weak/B=bound/A=absent: Carotid (R): Normal , Carotid (L): Normal, Radial (R): Normal, Radial (L): Normal, Femoral (R): Normal, Femoral (L): Normal, Dorsalis-pedis (R): Normal, Dorsalis-pedis (L): Normal Gastrointestinal/Abdominal: Present: normal bowel sounds, nontender, nondistended, soft, no organomegaly Back Exam: Present: normal inspection, normal range of motion, no CVA tenderness , no vertebral tenderness Extremity Exam: Present: normal inspection, non-tender, normal range of motion, no edema Neurological Exam: Present: alert, oriented, normal mood/affect, no motor/ sensory deficits Skin Exam: Present: normal color, warm/dry Lymphatic Exam: Present: no adenopathy ED Progress - Vital Signs Patient's Vital Signs:: I have reviewed the patient's vital signs. Vital Signs: Vital Signs 01/05/18 01/05/18 01/05/18 18:31 18:39 19:02 Temperature 38.0 C H 38.0 C H Pulse Rate 87 101 H 86 Respiratory 18 18 16 Rate Blood Pressure 188/69 159/70 158/73 O2 Sat by Pulse 95 98 Oximetry - EKG EKG: NSR EKG read: Interp. by me - Progress/Reassessment Chief Complaint: Cough Departure Clinical Impression: Pneumonia, Chest pain - Departure Disposition: [facility] [place] Condition: Fair Referrals: William Bueno MD [Primary Care Provider] - <Husam Ignacio - Last Filed: 01/05/18 21:34> Immunizations: IMMUNIZATION HX Immunizations Up to Date No History of Influenza Vaccine No Hx Pneumococcal Vaccination No ED Progress - Vital Signs Vital Signs: Vital Signs 01/05/18 01/05/18 01/05/18 18:31 18:39 19:02 Temperature 38.0 C H 38.0 C H Pulse Rate 87 101 H 86 Respiratory 18 18 16 Rate Blood Pressure 188/69 159/70 158/73 O2 Sat by Pulse 95 98 Oximetry 01/05/18 01/05/18 20:00 20:50 Temperature Pulse Rate 73 94 Respiratory 18 16 Rate Blood Pressure 151/63 133/76 O2 Sat by Pulse 95 96 Oximetry - Progress/Reassessment Progress:: Unchanged Progress Note-Subjective: 01/05/18 21:17 Care of the patient was assumed at the change of shift. On questioning the patient she complains of mild chest tightness since being in the ED. She does not recall when was the last cardiac catherterization, but does admit to having 6 stents placed; and having an [place] in 2004. 01/05/18 21:31 Case was discussed with Merlin about the admission. The patient will be admitted for observation overnight. It would appear that she clinically has pneumonia, however does not show up on the chest x-ray. Serial Troponin levels will be done as well over night. 01/05/18 21:33 There was questionable relief of the chest tightness after the use of nitroglycerin. 01/05/18 21:34
[2018-01-05 19:24] LABS: ALT 17 U/L (19-67); AST 20 U/L (0-48); Alkaline Phosphatase * 70 U/L (50-170); Anion Gap 13.2 mmol/L (6.8-13.8); BNP * 1808 pg/mL (5-550); BUN/Creatinine Ratio 10.7 (9.0-21.6); Bilirubin, Total 0.3 mg/dL (0.0-1.1); Blood Urea Nitrogen 11 mg/dL (3-23); Ca. Corrected For Albumin 8.4 mg/dL (8.4-10.2); Calcium * 8.7 mg/dL (7.9-10.9); Carbon Dioxide 26.3 mmol/L (24-32.6); Chloride 98 mmol/L (97-106); Glucose * 154 mg/dL (70-110); Potassium 4.5 mmol/L (3.4-4.6); Sodium 133 mmol/L (132-142); Total Protein 7.7 gm/dL (6.2-8.2); Troponin I Less than 0.017 ng/ml (0.00-0.10)
[2018-01-05] MEDS ORDERED: LEVOFLOXACIN IN DEXTROSE 5 % 750 MG/150 ML BAG IV ONE (20:26)
[2018-01-05 20:48] LABS: Urine Appearance Clear; Urine Bacteria None Seen; Urine Bilirubin Negative (NEGATIVE); Urine Blood Negative /ul (NEGATIVE); Urine Color Yellow; Urine Ketone Negative (NEGATIVE); Urine Nitrite Negative (NEGATIVE); Urine Protein Negative (NEGATIVE); Urine RBC None Seen /hpf (0-5); Urine Urobilinogen Normal (NORMAL); Urine WBC 0-5 /hpf (0-5)
[2018-01-05] MEDS ORDERED: NITROGLYCERIN 0.4 MG/TAB BTL SL ONE ×2 (21:19→21:22)
[2018-01-05] MEDS ORDERED: ASPIRIN 81 MG TAB.CHEW PO ONE (21:19)
[2018-01-05] MEDS ORDERED: ASPIRIN 81 MG TAB.CHEW ONE (21:22)
[2018-01-05] MEDS ORDERED: ALBUTEROL SULFATE/IPRATROPIUM 3 ML NEBU IH PRN (23:01)
--- NOTE | 2018-01-05 23:06 | HP ---
Chief Complaint - Chief Complaint Date of Service: 01/05/18 Time of Service: 23:05 Chief Complaint: cough, fever, chills History of Present Illness: 82 years old female adm to the hospital with reports of chest pain, cough and sinus pressure and drainage that began last week. PMH significant for [place] 2004 with stents x6, hypertension, diabetes, hyperlipidemia and hypothyroidism. pt stated Last week she had a cough that was sometime productive with thick brown to yellow sputum and post nasal drip that she was using Benadryl to treat. However today her s/s was getting worst. she felt fatigue, fever, chills and chest discomfort so she came to the ER. While in ER serial troponin x2 negative , EKG-NSR, chest pain resolved with nitro tab. Influenza A& B were negative, Procal <0.05, Lactic acid 1.1, WBC 7.7 and BNP 1808, temp 38.0. She was initiated on Levaquin.Clinically pt present to have URI vs pneumonia, On preliminary CXR:No pneumonia seen. Plan of care discussed with pt she verbalized understanding and agrees. - Patient's Past Medical History Patient History - Medical: Chronic Pain, Diabetes Type 2, GERD, Headache, Osteoarthritis, Osteoporosis Patient History - Cardiac/Respiratory: Hypertension, Hyperlipidemia, Myocardial Infarction - stents x6 Patient History - Cancer: Skin Patient History - Surgical Procedures: Appendectomy, Back Surgery, Cataracts, Cholecystectomy, Colonoscopy, Cardiac stent, D & C, EGD, T & A Patient History - Other: None LMP (females 10-50): Menopausal - Family History Family History:: no untoward family reactions to anesthesia, no familial bleeding tendencies, no family history of clotting disorders, no family history of premature - Social History Living Situations: home - with family Abuse History: No History of abuse Psych History: No pertinent hx Smoking Status: Never smoker Have you smoked in the past 12 months: No Do you dip or chew tobacco: No Alcohol Use: none Drug Use: none - Immunizations Immunizations Up to Date: No Hx Pneumococcal Vaccination: No History of Influenza Vaccine: No Review Of Systems (GEN) - Review of Systems Generalized/Overall Review: Present: Chills, Fever EENTM: Present: No Symptoms Reported Respiratory: Present: Cough Cardiac: Present: No Symptoms Reported Abdominal: Present: No Symptoms Reported Genitourinary: Present: No Symptoms Reported Musculoskeletal: Present: No Symptoms Reported Neurological: Present: Anxiety Skin: Present: No Symptoms Reported Endocrine: Present: No Symptoms Reported Allergies/Adverse Reactions: Allergies Allergy/AdvReac Type Severity Reaction Status Date / Time metronidazole [From Flagyl] Allergy Unknown Verified 11/16/17 10:46 alendronate sodium AdvReac Mild ABD PAIN Verified 11/16/17 10:46 [From Fosamax] clindamycin HCl AdvReac Mild GI UPSET Verified 11/16/17 10:46 [From Cleocin] clindamycin palmitate HCl AdvReac Mild GI UPSET Verified 11/16/17 10:46 [From Cleocin] clindamycin phosphate AdvReac Mild GI UPSET Verified 11/16/17 10:46 [From Cleocin] gabapentin AdvReac Mild BOWEL Verified 11/16/17 10:46 INCONTINENCE pregabalin [From Lyrica] AdvReac Mild LOOSE Verified 11/16/17 10:46 STOOLS Sulfa (Sulfonamide AdvReac Mild Itching Verified 11/16/17 10:46 Antibiotics) tramadol AdvReac Mild Itching Verified 11/16/17 10:46 Home Medications: HOME MEDICATIONS Aspirin 325 mg PO DAILY 09/01/17 [Last Taken Unknown] Cholecalciferol (Vitamin D3) [Vitamin D3] 1,000 unit PO DAILY 09/01/17 [Last Taken Unknown] Clopidogrel Bisulfate [Plavix] 75 mg PO DAILY 09/01/17 [Last Taken Unknown] Cyanocobalamin [Vitamin B-12] 1,000 mcg PO DAILY 09/01/17 [Last Taken Unknown] Folic Acid 1 mg PO DAILY 09/01/17 [Last Taken Unknown] Isosorbide Mononitrate [Imdur] 60 mg PO BID 09/01/17 [Last Taken Unknown] Levothyroxine Sodium [Synthroid] 50 mcg PO DAILY 09/01/17 [Last Taken Unknown] Lovastatin 40 mg PO HS 09/01/17 [Last Taken Unknown] Metoprolol Tartrate [Lopressor] 50 mg PO BID 09/01/17 [Last Taken Unknown] Nitroglycerin [Nitrostat] 0.4 mg SL [id number] PRN 09/01/17 [Last Taken Unknown] Polyethylene Glycol 3350 [Miralax] 17 gm PO BID 09/01/17 [Last Taken Unknown] Ranitidine HCl [Zantac] 150 mg PO BID 09/01/17 [Last Taken Unknown] glipiZIDE [Glipizide] 0.5 tab PO DAILY 09/01/17 [Last Taken Unknown] Calcium Carbonate 600 mg PO DAILY 11/06/17 [Last Taken Unknown] Topiramate [Topamax] 100 mg PO BID 11/06/17 [Last Taken Unknown] Exam - Exam Vital Signs: Vital Signs - Last Taken Temp 36.6 C 01/05/18 22:34 Pulse 88 01/05/18 22:34 Resp 18 01/05/18 22:34 BP 183/77 01/05/18 22:34 Pulse Ox 95 01/05/18 22:34 Constitutional: Present: Alert, Oriented x3, Cooperative, Well developed, No distress ENT Exam: Present: hearing grossly normal Eye Exam: bilateral eye: normal inspection Neck: Present: full range of motion Back Exam: Present: normal inspection Breasts: Present: Exam deferred Respiratory: Present: chest non-tender, no respiratory distress, no accessory muscle use, decreased breath sounds, rales Cardiovascular/Chest: Present: normal peripheral pulses, regular rate, rhythm, no chest tenderness, no edema, no gallop Peripheral Pulses: dorsalis-pedis (R): 2+, dorsalis-pedis (L): 2+ Abdomen: Present: Normal bowel sounds, soft, nontender, nondistended, no rebound tenderness /Rectal: Present: Exam deferred Extremity: Present: normal range of motion, non-tender, normal inspection, no pedal edema Skin Exam: Present: warm/dry Neurologic: Present: oriented x 3 Appearance: Present: appropriate appearance, appropriate insight Eye contact: Present: cooperative, good eye contact Thoughts: Present: normal thought pattern Diagnostic Studies: Laboratory Results WBC 7.7 K/mm3 (4.0-10.5) 01/05/18 18:57 RBC 3.47 M/mm3 (4.2-5.4) L 01/05/18 18:57 Hgb 11.4 gm/dL (12.5-16.0) L 01/05/18 18:57 Hct 33.6 % (37.0-47.0) L 01/05/18 18:57 MCV 96.8 fl (78-100) 01/05/18 18:57 MCH 32.9 pg (27-31) H 18 18:57 MCHC 33.9 g/dl (32-36) 18 18:57 RDW 12.0 % (11.5-14.0) 18 18:57 Plt Count 167 K/mm3 (150-450) 18 18:57 MPV 8.8 fl (6.0-9.5) 01/05/18 18:57 Immature Gran % (Auto) 0.40 % (0.001-0.429) 18 18:57 Immature Gran # (Auto) 0.03 K/mm3 (0.000-0.0310) 01/05/18 18:57 Neutrophils % 72.2 % (42-75.0) 18 18:57 Lymphocytes % 17.8 % (20-51) L 01/05/18 18:57 Monocytes % 8.6 % (0.0-9) 01/05/18 18:57 Eosinophils % 0.6 % (0.0-3.0) 01/05/18 18:57 Basophils % 0.4 % (0.0-1.0) 18 18:57 Nucleated RBC % 0.0 k/mm3 (0-1) 01/05/18 18:57 Neutrophils # 5.6 K/mm3 (1.3-6.0) 18 18:57 Lymphocytes # 1.4 k/mm3 (1.5-3.5) L 01/05/18 18:57 Monocytes # 0.7 k/mm3 (0.0-1.0) 01/05/18 18:57 Eosinophils # 0.1 k/mm3 (0.0-0.7) 18 18:57 Absolute Basophils 0.0 k/mm3 (0.0-0.1) 01/05/18 18:57 Sodium 133 mmol/L (132-142) 18 18:57 Plasma Sodium 134 mmol/L (130-142) 18 18:57 Potassium 4.5 mmol/L (3.4-4.6) 18 18:57 Chloride 98 mmol/L (97-106) 18 18:57 Carbon Dioxide 26.3 mmol/L (24-32.6) 01/05/18 18:57 Anion Gap 13.2 mmol/L (6.8-13.8) 01/05/18 18:57 BUN 11 mg/dL (3-23) 01/05/18 18:57 Creatinine 1.03 mg/dL (0.4-1.4) 01/05/18 18:57 Est GFR (Non-Af Amer) 55 mL/min (60-130) L 01/05/18 18:57 BUN/Creatinine Ratio 10.7 (9.0-21.6) 01/05/18 18:57 Random Glucose 154 mg/dL (70-110) H 01/05/18 18:57 Lactic Acid, Venous 1.1 mmol/L (0.4-1.9) 01/05/18 18:57 Calcium 8.7 mg/dL (7.9-10.9) 01/05/18 18:57 Calcium Adj for Albumin 8.4 mg/dL (8.4-10.2) 01/05/18 18:57 Total Bilirubin 0.3 mg/dL (0.0-1.1) 01/05/18 18:57 AST 20 U/L (0-48) 01/05/18 18:57 ALT 17 U/L (19-67) L 01/05/18 18:57 Alkaline Phosphatase 70 U/L (50-170) 01/05/18 18:57 Troponin I Less than 0.017 ng/ml (0.00-0.10) 01/05/18 21:10 B-Natriuretic Peptide 1808 pg/mL (5-550) H 01/05/18 18:57 Total Protein 7.7 gm/dL (6.2-8.2) 01/05/18 18:57 Albumin 4.0 gm/dl (3.4-5.0) 01/05/18 18:57 Procalcitonin Less than 0.05 ng/mL (0.05-0.50) L 01/05/18 18:57 Urine Color Yellow 01/05/18 20:33 Urine Appearance Clear 01/05/18 20:33 Urine pH 6.0 pH (5.0-7.0) 01/05/18 20:33 Ur Specific [place] 1.010 SP.GR. (1.005-1.010) 01/05/18 20:33 Urine Protein Negative mg/dL (NEGATIVE) 01/05/18 20:33 Urine Glucose (UA) Negative mg/dL (NEGATIVE) 01/05/18 20:33 Urine Ketones Negative mg/dL (NEGATIVE) 01/05/18 20:33 Urine Blood Negative /ul (NEGATIVE) 01/05/18 20:33 Urine Nitrate Negative (NEGATIVE) 01/05/18 20:33 Urine Bilirubin Negative mg/dl (NEGATIVE) 01/05/18 20:33 Urine Urobilinogen Normal EU/dl (NORMAL) 01/05/18 20:33 Ur Leukocyte Esterase Negative /ul (NEGATIVE) 01/05/18 20:33 Urine RBC None seen /hpf (0-5) 01/05/18 20:33 Urine WBC 0-5 /hpf (0-5) 01/05/18 20:33 Ur Epithelial Cells 0-5 /hpf (0-5) 01/05/18 20:33 Urine Bacteria None seen (NONE) 01/05/18 20:33 Urine Culture Comments No culture indicated 01/05/18 20:33 Influenza Type A Ag Negative (NEGATIVE) 01/05/18 19:00 Influenza Type B Ag Negative (NEGATIVE) 01/05/18 19:00 Assessment/Plan - Narrative Narrative: URI vs Pneumonia CXR: pending WBC, lactic acid and procalcitonin unremarkable Influenza negative Legionella/ pneumoiae pending Encourage use of cornet Continue use of Levaquin, duoneb and Mucinex Chest pain pt report chest tightness possible due to excessive coughing Serial trop x2 negative Chest pain relieved with use of nitro tab Diabetes Accu-check AC+HS and low dose sliding scale insulin may resume home medication when medication list become available Consistent carb diet Hypertension May resume home medications Constipation Stool softeners and Laxative Code status: Full GI ppx: Protonix VTE ppx: SCD and ambulate Time 45 minutes and case discussed with Dr Roldan - Assessment/Plan (1) Diabetes Problem: Chronic Qualifiers: Diabetes mellitus type: type 2 (2) Hypertension Problem: Chronic Qualifiers: Hypertension type: essential hypertension Qualified Code(s): I10 - Essential (primary) hypertension (3) Chest pain Problem: Acute Qualifiers: Chest pain type: chest pain on breathing Qualified Code(s): R07.1 - Chest pain on breathing; R07.81 - Pleurodynia (4) Pneumonia Problem: Suspected (5) Constipation Problem: Chronic Qualifiers: Constipation type: slow transit constipation Qualified Code(s): K59.01 - Slow transit constipation
[2018-01-06] MEDS: LORATADINE 10 MG TABLET PO SCH ×2 (00:13→11:14)
[2018-01-06] MEDS ORDERED: NITROGLYCERIN 0.4 MG/TAB BTL SL PRN (03:11)
[2018-01-06] MEDS ORDERED: LEVOTHYROXINE SODIUM 50 MCG TABLET PO SCH (07:00)
[2018-01-06] MEDS ORDERED: AZITHROMYCIN 250 MG TABLET PO ONE (07:15)
--- NOTE | 2018-01-06 07:22 | DS ---
<Anabel - Last Filed: 01/06/18 11:30> (1) Acute bronchitis Problem: Acute (2) Pleuritic chest pain Problem: Acute Procedures Performed: none Discharge Disposition: Home self care Disposition: Home self-care Condition: Stable Discharge Activity: Activity as tolerated Discharge Diet: Consistent carbs, Resume usual diet Referrals: Everette Thomas DO [Staff Physician] - Problem Oriented Discharge Instructions to Patient/Family: Acute Bronchitis, [id number] Additional Patient Instructions (free text): -Patient already scheduled to see Dr. Thomas tomorrow, 01/07/2018 @ 9:00AM Prescriptions (Any new or edited meds): Azithromycin [Zithromax] 250 mg PO DAILY #4 tablet guaiFENesin [Mucinex] 600 mg PO BID 10 Days #20 tablet.sa Loratadine [Claritin] 10 mg PO DAILY 14 Days #14 tablet Complete Home Medications List: Complete Home Medication List: Aspirin 325 mg PO DAILY 09/01/17 Cholecalciferol (Vitamin D3) [Vitamin D3] 1,000 unit PO DAILY 09/01/17 Clopidogrel Bisulfate [Plavix] 75 mg PO DAILY 09/01/17 Cyanocobalamin [Vitamin B-12] 1,000 mcg PO DAILY 09/01/17 Folic Acid 1 mg PO DAILY 09/01/17 Isosorbide Mononitrate [Imdur] 60 mg PO BID 09/01/17 Levothyroxine Sodium [Synthroid] 50 mcg PO DAILY 09/01/17 Lovastatin 40 mg PO HS 09/01/17 Metoprolol Tartrate [Lopressor] 50 mg PO BID 09/01/17 Nitroglycerin [Nitrostat] 0.4 mg SL [id number] PRN 09/01/17 Polyethylene Glycol 3350 [Miralax] 17 gm PO BID 09/01/17 Ranitidine HCl [Zantac] 150 mg PO BID 09/01/17 glipiZIDE [Glipizide] 0.5 tab PO DAILY@0700 09/01/17 Calcium Carbonate 600 mg PO DAILY 11/06/17 Topiramate [Topamax] 100 mg PO BID 11/06/17 Azithromycin [Zithromax] 250 mg PO DAILY #4 tablet 01/06/18 HYDROcodone/ACETAMINOPHEN [[place] 5-325 Tablet] 1 tab PO TID PRN 01/06/18 Loratadine [Claritin] 10 mg PO DAILY 14 Days #14 tablet 01/06/18 guaiFENesin [Mucinex] 600 mg PO BID 10 Days #20 tablet.sa 01/06/18 <Merlin Crowe - Last Filed: 01/06/18 19:43> (1) Diabetes Problem: Chronic Qualifiers: Diabetes mellitus type: type 2 (2) Hypertension Problem: Chronic Qualifiers: Hypertension type: essential hypertension Qualified Code(s): I10 - Essential (primary) hypertension (3) Pneumonia Problem: Suspected (4) Constipation Problem: Chronic Qualifiers: Constipation type: slow transit constipation Qualified Code(s): K59.01 - Slow transit constipation (5) Bronchitis Problem: Acute Description of Stay: 82 years old female adm to the hospital with reports of chest pain, cough, sinus pressure and drainage that began last week. PMH significant for [place] 2004 with stents x6, hypertension, diabetes, hyperlipidemia and hypothyroidism. pt stated Last week she had a cough that was sometime productive with thick brown to yellow sputum and post nasal drip that she was using Benadryl to treat. despite home treatment her s/s was getting worst. she felt fatigue, fever, chills and chest discomfort so she came to the ER. While in ER serial troponin x2 negative, EKG-NSR, chest pain resolved with nitro tab. Influenza A& B were negative, Procal <0.05, Lactic acid 1.1, WBC 7.7 and BNP 1808, temp 38.0. She was initiated on Levaquin.Clinically pt present to have URI vs pneumonia, On preliminary CXR:No pneumonia seen. During adm pt had productive cough with use of cornet and neb treatment. pt stated she was feeling much better. She was discharge home with Mucinex, claritin and Azithromycin x4 days and plans to see Dr Thomas tomorrow.Plan of care discussed with pt she verbalized understanding and agrees. Procedures Performed: none Discharge Disposition: Home self care Discharge Activity: Activity as tolerated Discharge Diet: Consistent carbs
[2018-01-06] MEDS ORDERED: ISOSORBIDE MONONITRATE 60 MG TAB.SR.24H PO SCH (09:00)
[2018-01-06] MEDS ORDERED: CHOLECALCIFEROL 1,000 UNIT CAPSULE PO SCH (09:00)
[2018-01-06] MEDS ORDERED: ASPIRIN 325 MG TABLET.DR PO SCH (09:00)
[2018-01-06] MEDS ORDERED: POLYETHYLENE GLYCOL 3350 119 GM BTL PO SCH (09:00)
[2018-01-06] MEDS ORDERED: CALCIUM CARBONATE 500 MG TAB.CHEW PO SCH (09:00)
[2018-01-06] MEDS ORDERED: TOPIRAMATE 50 MG TABLET PO SCH (09:00)
[2018-01-06] MEDS ORDERED: FAMOTIDINE 20 MG TABLET PO SCH (09:00)
[2018-01-06] MEDS ORDERED: CYANOCOBALAMIN 1,000 MCG TABLET PO SCH (09:00)
[2018-01-06] MEDS ORDERED: FOLIC ACID 1 MG TABLET PO SCH (09:00)
[2018-01-06] MEDS ORDERED: METOPROLOL TARTRATE 50 MG TABLET PO SCH (09:00)
[2018-01-06] MEDS ORDERED: CLOPIDOGREL BISULFATE 75 MG TABLET PO SCH (09:00)
[2018-01-06] MEDS ORDERED: glipiZIDE 5 MG TABLET PO SCH (09:00)
[2018-01-06] MEDS ORDERED: METOPROLOL TARTRATE 1 MG/ML AMPUL IV ONE (10:05)
[2018-01-06] MEDS ORDERED: HYDROcodone/ACETAMINOPHEN 1 EACH TABLET PO PRN (11:29)
[2018-01-06 12:53] VITALS: BP 146/55
[2018-01-06] MEDS ORDERED: ROSUVASTATIN CALCIUM 10 MG TABLET PO SCH (21:00)
== END 2018-01-06 14:30 | disposition home or self-care (01) ==
LOC: ER 18:18 → MS 21:41
PROVIDERS: ADMIT Internal Medicine; ATTEND Internal Medicine
DX: J20.9 Acute bronchitis, unspecified (principal); R07.9 Chest pain, unspecified; E11.9 Type 2 diabetes mellitus without complications; Z79.84 Long term (current) use of oral hypoglycemic drugs; I10 Essential (primary) hypertension; K59.00 Constipation, unspecified; K31.9 Disease of stomach and duodenum, unspecified; K21.9 Gastro-esophageal reflux disease without esophagitis; I25.2 Old myocardial infarction; E78.2 Mixed hyperlipidemia; E03.9 Hypothyroidism, unspecified; Z68.22 Body mass index [BMI] 22.0-22.9, adult
CPT/HCPCS: 36415; 71046; 80053; 81001; 83605; 83880; 84145; 84484; 85025; 87040; 87400; 87449; 93005; 94760; 96365; 99284; G0378

== ENCOUNTER 2018-08-12 15:02 | Inpatient (IN) | payer MEDICARE, OTHER ==
[2018-08-12] MEDS ORDERED: NORMAL SALINE 1,000 ML IV ONE (15:11)
--- NOTE | 2018-08-12 15:17 | ERNOTE ---
Trauma/Assault HPI - General Stated Complaint: FALL-HEAD WOUNDS Time Seen by Provider: 08/12/18 15:05 Source: patient, EMS Exam Limitations: no limitations - patient was opening her door and got caught in a eric of wind got knocked backward and tumbled down approximately 12 steps, patient has bleeding on the scalp complains of pain in the proximal right shoulder, right pelvis and right femur - Immun/Allergies/Home Medications Immunizations: IMMUNIZATION HX Immunizations Up to Date No History of Influenza Vaccine No Hx Pneumococcal Vaccination No Allergies/Adverse Reactions: Allergies metronidazole [From Flagyl] Allergy (Unknown, Verified 08/12/18 15:10) alendronate sodium [From Fosamax] Adverse Reaction (Mild, Verified 08/12/18 15: 10) ABD PAIN clindamycin HCl [From Cleocin] Adverse Reaction (Mild, Verified 08/12/18 15:10) GI UPSET clindamycin palmitate HCl [From Cleocin] Adverse Reaction (Mild, Verified 15:10) GI UPSET clindamycin phosphate [From Cleocin] Adverse Reaction (Mild, Verified 08/12/18 15:10) GI UPSET gabapentin Adverse Reaction (Mild, Verified 08/12/18 15:10) BOWEL INCONTINENCE pregabalin [From Lyrica] Adverse Reaction (Mild, Verified 08/12/18 15:10) LOOSE STOOLS Sulfa (Sulfonamide Antibiotics) Adverse Reaction (Mild, Verified 08/12/18 15:10) Itching tramadol Adverse Reaction (Mild, Verified 08/12/18 15:10) Itching acetaminophen [From Tylenol] Adverse Reaction (Verified 08/12/18 15:10) hydrocodone Adverse Reaction (Verified 08/12/18 15:10) metformin Adverse Reaction (Verified 08/12/18 15:10) methocarbamol Adverse Reaction (Verified 08/12/18 15:10) naproxen Adverse Reaction (Verified 08/12/18 15:10) pentazocine Adverse Reaction (Verified 08/12/18 15:10) propoxyphene Adverse Reaction (Verified 08/12/18 15:10) Home Medications: HOME MEDICATIONS Cholecalciferol (Vitamin D3) [Vitamin D3] 1,000 unit PO DAILY 09/01/17 [Last Taken Unknown] Cyanocobalamin [Vitamin B-12] 1,000 mcg PO DAILY 09/01/17 [Last Taken Unknown] Folic Acid 1 mg PO DAILY 09/01/17 [Last Taken Unknown] Isosorbide Mononitrate [Imdur] 60 mg PO BID 09/01/17 [Last Taken Unknown] Levothyroxine Sodium [Synthroid] 50 mcg PO DAILY 09/01/17 [Last Taken Unknown] Nitroglycerin [Nitrostat] 0.4 mg SL [id number] PRN 09/01/17 [Last Taken Unknown] glipiZIDE [Glipizide] 0.5 tab PO DAILY@0700 09/01/17 [Last Taken Unknown] Calcium Carbonate [Calcium] 600 mg PO DAILY 11/06/17 [Last Taken Unknown] Topiramate [Topamax] 0.5 mg PO BID 11/06/17 [Last Taken Unknown] Loratadine [Claritin] 10 mg PO DAILY 14 Days #14 tab 01/06/18 [Last Taken Unknown] aspirin 81 mg tablet,delayed release 324 mg PO DAILY #120 tab 06/24/18 [Last Taken Unknown] clopidogrel 75 mg tablet 75 mg PO DAILY #30 tab 07/08/18 [Last Taken Unknown] lovastatin 40 mg tablet 40 mg PO HS #90 tab 07/08/18 [Last Taken Unknown] polyethylene glycol 3350 17 gram oral powder packet 17 g PO BID #1 ea 07/11/18 [ Last Taken Unknown] ranitidine 150 mg tablet 150 mg PO BID #60 tab 08/12/18 [Last Taken Unknown] - History of Present Illness Narrative: Patient states that she fell just prior to coming in after being knocked down 12 steps Location Occurred: Reports: home Pain Location: Reports: head, upper extremity, lower extremity Method of Injury: Reports: other - knocked down by eric of wind Severity: moderate Loss of Consciousness: Reports: no loss of consciousness Associated Symptoms - Trauma: Reports: headache Review of Systems - Review of Systems Constitutional: Present: See HPI EYE: Present: no symptoms reported ENT: Present: See HPI Respiratory: Present: no symptoms reported Cardiology: Present: no symptoms reported Gastrointestinal/Abdominal: Present: no symptoms reported Genitourinary: Present: no symptoms reported Musculoskeletal: Present: See HPI Skin: Present: no symptoms reported Neurological: Present: no symptoms reported Endocrine: Present: no symptoms reported Hematologic/Lymphatic: Present: no symptoms reported Psych: Present: no symptoms reported Medical History (Last Reviewed 08/12/18 @ 15:14 by Avinash David RN) Lumbar radiculopathy (Chronic) Sacroiliitis (Acute) Low back pain (Chronic) Contusion of finger, left (Acute) Constipation (Chronic) Onset Date: Unknown UTI (urinary tract infection) (Acute) Onset Date: Unknown Diabetes (Chronic) Onset Date: Unknown Hypertension (Chronic) Onset Date: Unknown CAD (coronary artery disease) Onset Date: 09/13/15 Chronic pain syndrome Onset Date: 04/04/12 Essential tremor Onset Date: Unknown GERD (gastroesophageal reflux disease) Onset Date: Unknown Hyperlipidemia Onset Date: Unknown Restless leg syndrome Onset Date: Unknown Actinic keratosis Onset Date: 09/13/15 Surgical History: Surgical History (Last Reviewed 08/12/18 @ 15:14 by Avinash David RN) H/O dilation and curettage Onset Date: Unknown H/O adenoidectomy Onset Date: Unknown H/O cardiac catheterization Onset Date: 06/2016 H/O colonoscopy Onset Date: 11/16/11 H/O lumbosacral spine surgery Onset Date: 2007 History of esophagogastroduodenoscopy (EGD) Onset Date: 11/16/11 History of intravascular stent placement Onset Date: 09/13/11 Hx of appendectomy Onset Date: Unknown Hx of cataract surgery Onset Date: Unknown Hx of cholecystectomy Onset Date: Unknown Hx of tonsillectomy Onset Date: Unknown Previous back surgery Onset Date: Unknown S/P epidural steroid injection Onset Date: 12/09/07 h/o right shoulder replacement Onset Date: 07/2005 Family History: Family History (Last Reviewed 08/12/18 @ 15:14 by Avinash David RN) Brother Myocardial infarction Father Myocardial infarction Hypertension Mother Diabetes Sister Heart disease Social History: Preferred Language Croatian Abuse History No History of abuse Psych History No pertinent hx Alcohol Use rarely Drug Use none Physical Exam - Physical Exam General Appearance: Present: wd/wn, alert, moderate distress Head Exam: Present: lacerations - multiple lacerations on the scalp, other Eye Exam: Normal inspection: bilateral, PERRL: bilateral Ears, Nose, Throat: Present: normal ENT inspection, H, normal pharynx Neck: Present: normal inspection, nontender Respiratory: Present: no respiratory distress, normal breath sounds, no accessory muscle use, chest nontender, lungs clear Cardiovascular/Chest: Present: no murmur, normal peripheral pulses, tachycardia Gastrointestinal/Abdominal: Present: normal bowel sounds, nontender, nondistended, soft, no organomegaly Rectal Exam: Present: deferred Back Exam: Present: normal inspection, normal range of motion Extremity Exam: Present: other - patient has tenderness with hematoma at the proximal right humerus, crest of the right hip and right femur Neurological Exam: Present: alert, oriented, normal mood/affect Skin Exam: Present: normal color, warm/dry Lymphatic Exam: Present: no adenopathy Detailed Trauma Exam Best Eye Response ([place]): (4) open spontaneously Best Verbal Response ([place]): (5) oriented Best Motor Response ([place]): (6) obeys commands [place] Total: 15 General Appearance: Present: alert, moderate distress Head Injury: Present: lacerations - forehead and scalp Neurological Exam: Present: alert, oriented x 4, no motor/sensory deficits, consumer insight manager II-XII nml as tested, normal cerebellar test, normal mood/affect, no motor/ sensory deficit Neck Exam: Present: non-tender, full range of motion, normal alignment, normal inspection - F removal of the c-collar Eye Exam: Normal inspection: bilateral, PERRL: bilateral, EOMI: bilateral ENT Exam: Present: nml ext. inspection Chest/Respiratory Exam: Present: nml inspection, chest non-tender, breath sounds nml Cardiovascular Exam: Present: regular rate, rhythm, no murmur, normal peripheral pulses Back Exam: Present: other - hematoma present at the right lower flank area extending down into the gluteal muscle Abdominal Exam: Present: soft, non-tender, no distention, normal bowel sounds Skin Exam: Present: pallor RU Extremity: Present: other - hematoma present right proximal humerus CHANDRAKANT Extremity: Present: normal inspection, normal range of motion RL Extremity: Present: other - hematoma present at the right lacunar region and up into the right flank LL Extremity: Present: normal inspection, normal range of motion - C-Collar: C-Collar:: Removed - by me after the CT of the neck was cleared ED Progress - Results and Orders Patient's Lab Results:: I have reviewed the patient's lab results. - Vital Signs Patient's Vital Signs:: I have reviewed the patient's vital signs. Vital Signs: Vital Signs 08/12/18 15:04 Temperature 36.6 C Pulse Rate 106 H Respiratory Rate 24 H Blood Pressure 134/82 - X-Ray X-Ray #1 X-Ray: humerus Interpretation: Reviewed by me X-Ray #2 X-Ray: pelvis Interpretation: Reviewed by me - CT/Ultrasound CT/Ultrasound Narrative: CT the head neck chest abdomen pelvis reviewed by me - Progress/Reassessment Chief Complaint: Fall Procedures Frontal Anesthesia: Lidocaine w/ Epi I & D Prep: betadine prep Length of Repair/Wound (cm): 9 Wound's Depth/Shape: into subcutaneous Wound Explored: clean Wound Intervention: irrigated w/saline Suture Size/Type: 5-0 Number of Sutures: 13 Wound Dressing: sterile dressing applied Complications: Pt bernarda procedure well Parietal Length of Repair/Wound (cm): 14 Wound's Depth/Shape: into subcutaneous Wound Explored: clean Wound Intervention: irrigated w/saline Wound Repaired With: janes Number of Sutures: 23 Wound Dressing: sterile dressing applied Plan - Plan Plan: Patient lost approximately 3 units of blood I suspect some from the scalp, some from the hematoma in the right humerus area and thirdly from hematoma present in the right flank that extends in the right tibia region. Patient had brief episode of hypotension that responded nicely to fluid, however we are going to give her 2 units of blood and 1 unit of FFP and she'll be placed in the ICU for the night for close monitoring of her H&H and her overall mental status. I'm suspecting that she probably had a small concussion as well. Patient responded nicely to IV fluid bolus and her blood pressure improved to 120/50 and 1 nicely stabilized out with the 2 units of blood in the 1 unit of FFP. Departure Clinical Impression: Fall (on) (from) other stairs and steps, initial encounter, Hematoma and contusion Closed head injury Qualifiers: Encounter type: initial encounter Qualified Code(s): S09.90XA - Unspecified injury of head, initial encounter Anemia Qualifiers: Anemia type: other cause Other causes of anemia: acute posthemorrhagic Qualified Code(s): D62 - Acute posthemorrhagic anemia - Departure Disposition: Still a patient Condition: Critical Critical Care Time - Critical Care Critical Time Spent:: Yes Total time (mins) Spent:: 80 Critical Care: Patient required numerous interventions including IV fluid, 2 units of blood and 1 unit of FFP to help stabilize her blood pressure. Extensive time was taken in suturing as well and patient will need to be admitted to the SCU for the night.
[2018-08-12 16:31] LABS: Mean Cell Volume 105.8 fl (78-100); Mean Corpuscular Hemoglobin 34.4 pg (27-31); Mean Corpuscular Hgb Conc 32.5 g/dl (32-36); Mean Platelet Volume 9.1 fl (8-12.5); Neutrophil # 9.5 K/mm3 (1.3-6.0); Neutrophil % 80.8 % (42-75.0); Platelet Count 174 K/mm3 (150-450); Red Blood Count 2.24 M/mm3 (4.2-5.4); Red Cell Distribution Width 12.4 % (11.5-14.0); White Blood Count 11.7 K/mm3 (4.0-10.5)
[2018-08-12 16:37] LABS: Hematocrit 23.7 % (37.0-47.0); Hemoglobin 7.7 gm/dL (12.5-16.0)
[2018-08-12 16:41] LABS: Prothrombin Time (Patient) 11.3 Seconds (9.0-11.0)
[2018-08-12 16:45] LABS: Albumin * 2.9 gm/dl (3.4-5.0); Anion Gap 10.7 mmol/L (6.8-13.8); Bilirubin, Total 0.2 mg/dL (0.0-1.1); Ca. Corrected For Albumin 7.9 mg/dL (8.4-10.2); Calcium * 7.3 mg/dL (7.9-10.9); Carbon Dioxide 24.6 mmol/L (24-32.6); INR 1.13 INR (0.90-1.10); Partial Thrombolplastin Time 23.8 Seconds (24-32); Potassium 4.3 mmol/L (3.4-4.6); Total Protein 5.4 gm/dL (6.2-8.2)
[2018-08-12] MEDS: NORMAL SALINE 1,000 ML IV ONE (18:13)
[2018-08-12] MEDS ORDERED: MORPHINE SULFATE 2 MG/ML DISP.SYRIN IV ONE (20:06)
[2018-08-12] MEDS ORDERED: NITROGLYCERIN 0.4 MG/TAB BTL SL PRN (21:05)
--- NOTE | 2018-08-12 21:08 | HP ---
Chief Complaint - Chief Complaint Date of Service: 08/12/18 Time of Service: 19:17 Chief Complaint: Multiple body trauma due to a fall down stairs. Anemic due to large hematomas. Hypotension. History of Present Illness: Mrs. Ceballos is an 83 yo. wh. fe. who was attempting to chen some clothes up a flight of stairs and the door swung open knocking her down the stairs. She landed on her back and arm. She has been fully evaluated in the ER and her lacerations have been repaired. CT of the head, neck, chest, hips and pelvis are all thought to be negative for fracture. Her hg. dropped from 11.5g to 7.7 grams due to the bleeding scalp wounds and large hematomas. Her BP dropped to 80 /40. She was given LR, FFP and 2 u PRBCs and her last bp was 107/40. She is alert and conversational. Her head is mummy wrapped for compression dressing. Medical History (Last Reviewed 08/12/18 @ 20:49 by Jackelin Nguyen RN) Lumbar radiculopathy (Chronic) Sacroiliitis (Acute) Low back pain (Chronic) Contusion of finger, left (Acute) Constipation (Chronic) Onset Date: Unknown UTI (urinary tract infection) (Acute) Onset Date: Unknown Diabetes (Chronic) Onset Date: Unknown Hypertension (Chronic) Onset Date: Unknown CAD (coronary artery disease) Onset Date: 09/13/15 Chronic pain syndrome Onset Date: 04/04/12 Essential tremor Onset Date: Unknown GERD (gastroesophageal reflux disease) Onset Date: Unknown Hyperlipidemia Onset Date: Unknown Restless leg syndrome Onset Date: Unknown Actinic keratosis Onset Date: 09/13/15 Surgical History: Surgical History (Last Reviewed 08/12/18 @ 20:49 by Jackelin Nguyen RN) H/O dilation and curettage Onset Date: Unknown H/O adenoidectomy Onset Date: Unknown H/O cardiac catheterization Onset Date: 06/2016 H/O colonoscopy Onset Date: 11/16/11 H/O lumbosacral spine surgery Onset Date: 2007 History of esophagogastroduodenoscopy (EGD) Onset Date: 11/16/11 History of intravascular stent placement Onset Date: 09/13/11 Hx of appendectomy Onset Date: Unknown Hx of cataract surgery Onset Date: Unknown Hx of cholecystectomy Onset Date: Unknown Hx of tonsillectomy Onset Date: Unknown Previous back surgery Onset Date: Unknown S/P epidural steroid injection Onset Date: 12/09/07 h/o right shoulder replacement Onset Date: 07/2005 Family History: Family History (Last Reviewed 08/12/18 @ 20:49 by Jackelin Nguyen RN) Brother Myocardial infarction Father Myocardial infarction Hypertension Mother Diabetes Sister Heart disease Social History: Preferred Language Tristanian Abuse History No History of abuse Psych History No pertinent hx Alcohol Use rarely Drug Use none Review Of Systems (GEN) - Review of Systems EENTM: Present: Other - headache. Absent: Blurred Vision, Double Vision, Ear Pain, Ear Discharge, Nose Pain, Nose Congestion Respiratory: Present: No Symptoms Reported Cardiac: Present: No Symptoms Reported - No symptoms reported except for the hypotension due to the bleed out. Abdominal: Present: No Symptoms Reported Genitourinary: Present: No Symptoms Reported Musculoskeletal: Present: Back Pain, Muscle Pain, Neck Pain Neurological: Present: No Symptoms Reported, Headache Skin: Present: Bruising - She has multiple bruises made worse because she was on Plavix. Endocrine: Present: No Symptoms Reported Immunizations: IMMUNIZATION HX Immunizations Up to Date No History of Influenza Vaccine No Hx Pneumococcal Vaccination No Allergies/Adverse Reactions: Allergies Allergy/AdvReac Type Severity Reaction Status Date / Time metronidazole [From Flagyl] Allergy Unknown Verified 08/12/18 20:49 alendronate sodium AdvReac Mild ABD PAIN Verified 08/12/18 20:49 [From Fosamax] clindamycin HCl AdvReac Mild GI UPSET Verified 08/12/18 20:49 [From Cleocin] clindamycin palmitate HCl AdvReac Mild GI UPSET Verified 08/12/18 20:49 [From Cleocin] clindamycin phosphate AdvReac Mild GI UPSET Verified 08/12/18 20:49 [From Cleocin] gabapentin AdvReac Mild BOWEL Verified 08/12/18 20:49 INCONTINENCE pregabalin [From Lyrica] AdvReac Mild LOOSE Verified 08/12/18 20:49 STOOLS Sulfa (Sulfonamide AdvReac Mild Itching Verified 08/12/18 20:49 Antibiotics) tramadol AdvReac Mild Itching Verified 08/12/18 20:49 acetaminophen [From Tylenol] AdvReac Verified 08/12/18 20:49 hydrocodone AdvReac Verified 08/12/18 20:49 metformin AdvReac Verified 08/12/18 20:49 methocarbamol AdvReac Verified 08/12/18 20:49 naproxen AdvReac Verified 08/12/18 20:49 pentazocine AdvReac Verified 08/12/18 20:49 propoxyphene AdvReac Verified 08/12/18 20:49 Home Medications: HOME MEDICATIONS Cholecalciferol (Vitamin D3) [Vitamin D3] 1,000 unit PO DAILY 09/01/17 [Last Taken 08/12/18 08:00] Cyanocobalamin [Vitamin B-12] 1,000 mcg PO DAILY 09/01/17 [Last Taken 08/12/18 08:00] Folic Acid 1 mg PO DAILY 09/01/17 [Last Taken 08/12/18 08:00] Isosorbide Mononitrate [Imdur] 60 mg PO BID 09/01/17 [Last Taken 08/12/18 08:00] Levothyroxine Sodium [Synthroid] 50 mcg PO DAILY 09/01/17 [Last Taken 08/12/18 07:00] Nitroglycerin [Nitrostat] 0.4 mg SL [id number] PRN 09/01/17 [Last Taken Unknown] glipiZIDE [Glipizide] 0.5 tab PO DAILY@0700 09/01/17 [Last Taken 08/12/18 07:00] Calcium Carbonate [Calcium] 600 mg PO DAILY 11/06/17 [Last Taken 08/12/18 08:00] Topiramate [Topamax] 0.5 tab PO BID 11/06/17 [Last Taken Unknown] clopidogrel 75 mg tablet 75 mg PO DAILY #30 tab 07/08/18 [Last Taken 08/12/18 08 :00] lovastatin 40 mg tablet 40 mg PO HS #90 tab 07/08/18 [Last Taken Unknown] Aspirin [Aspirin Enteric Coated] 325 mg PO HS 08/12/18 [Last Taken Unknown] HYDROcodone/ACETAMINOPHEN [Hydrocodon-Acetaminophen 5-325] 1 each PO HS [Last Taken 08/11/18 22:00] Polyethylene Glycol 3350 [Miralax] 17 g PO HS 08/12/18 [Last Taken Unknown] ranitidine 150 mg tablet 150 mg PO BID #60 tab 08/12/18 [Last Taken 08/12/18 08: 00] Exam - Exam Vital Signs: Vital Signs - Last Taken Temp 36.2 C 08/12/18 19:13 Pulse 81 08/12/18 19:13 Resp 22 H 08/12/18 19:02 BP 112/41 08/12/18 19:13 Pulse Ox 100 08/12/18 19:13 Comprehensive Narrative: 08/12/18 19:27 Hepatobiliary shows repaired lacerations of the scalp one with suture and 1 with 23 janes. She has multiple contusions about the head. There is a large hematoma over the right shoulder and large hematomas on the buttocks. She has bruises on her back and ribs are tender to palpation. The pelvis seems stable on exam. ENT exam shows no hemotympanum and there is been no epistaxis. The neck otherwise feels supple. The abdomen is soft and nontender and no internal injuries are expected. CT of the head and neck chest hips and pelvis do not show any definitive fracture. There may be a small avulsion fracture on the right hip trochanter but it is not verified at this time. Constitutional: Present: Alert, Oriented x3, Cooperative, Well developed, Well nourished, Elderly, Thin and frail ENT Exam: Present: normal ENT inspection, hearing grossly normal, pharynx normal , TMs normal Eye Exam: bilateral eye: normal inspection, PERRL, EOMI Neck: Present: trachea midline, limited range of motion, tender lateral. Absent : lymphadenopathy (R), lymphadenopathy (L), stiff neck Back Exam: Present: other - Tender across the back. Breasts: Present: Nontender Respiratory: Present: chest non-tender, lungs clear, normal breath sounds, no respiratory distress, no accessory muscle use Cardiovascular/Chest: Present: normal peripheral pulses, regular rate, rhythm, no edema, no gallop, no JVD, no murmur, no rub, JVD, chest tender. Absent: no chest tenderness, bradycardia, tachycardia, diastolic murmur, systolic murmur Abdomen: Present: Normal bowel sounds, soft, nontender, nondistended, no rebound tenderness, no hepatospenomegaly, no masses Extremity: Present: normal capillary refill, pelvis stable. Absent: normal range of motion, non-tender Skin Exam: Present: normal color, warm/dry, no cyanosis Lymphatic: Present: no adenopathy Neurologic: Present: pension fund manager II-XII nml as tested, no motor/sensory deficits, alert , normal mood/affect, oriented x 3 Appearance: Present: appropriate appearance, appropriate insight, neat, no memory impairment Eye contact: Present: cooperative, good eye contact, normal speech Thoughts: Present: normal thought pattern. Absent: no apparent hallucination, auditory hallucinations, delusions, flight of ideas Diagnostic Studies: Abnormal Lab Results 08/12/18 08/12/18 08/12/18 Range/Units 16:20 16:20 16:20 WBC 11.7 H (4.0-10.5) K/mm3 RBC 2.24 L (4.2-5.4) M/mm3 Hgb 7.7 L* D (12.5-16.0) gm/dL Hct 23.7 L* D (37.0-47.0) % MCV 105.8 H (78-100) fl MCH 34.4 H (27-31) pg Immature Gran % (Auto) 0.70 H (0.001-0.429) % Immature Gran # (Auto) 0.08 H (0.000-0.0310) K/mm3 Neutrophils % 80.8 H (42-75.0) % Lymphocytes % 11.5 L (20-51) % Neutrophils # 9.5 H (1.3-6.0) K/mm3 Lymphocytes # 1.34 L (1.5-3.5) k/mm3 PT 11.3 H (9.0-11.0) Seconds INR (Anticoag Therapy) 1.13 H (0.90-1.10) INR PTT ([facility]) 23.8 L (24-32) Seconds Chloride 107 H (97-106) mmol/L Est GFR (Non-Af Amer) 56 L (60-130) mL/min Random Glucose 190 H (70-110) mg/dL Calcium 7.3 L (7.9-10.9) mg/dL Calcium Adj for Albumin 7.9 L (8.4-10.2) mg/dL ALT 16 L (19-67) U/L Total Protein 5.4 L (6.2-8.2) gm/dL Albumin 2.9 L (3.4-5.0) gm/dl Crossmatch 08/12/18 Range/Units Unknown WBC (4.0-10.5) K/mm3 RBC (4.2-5.4) M/mm3 Hgb (12.5-16.0) gm/dL Hct (37.0-47.0) % MCV (78-100) fl MCH (27-31) pg Immature Gran % (Auto) (0.001-0.429) % Immature Gran # (Auto) (0.000-0.0310) K/mm3 Neutrophils % (42-75.0) % Lymphocytes % (20-51) % Neutrophils # (1.3-6.0) K/mm3 Lymphocytes # (1.5-3.5) k/mm3 PT (9.0-11.0) Seconds INR (Anticoag Therapy) (0.90-1.10) INR PTT (Aniket) (24-32) Seconds Chloride (97-106) mmol/L Est GFR (Non-Af Amer) (60-130) mL/min Random Glucose (70-110) mg/dL Calcium (7.9-10.9) mg/dL Calcium Adj for Albumin (8.4-10.2) mg/dL ALT (19-67) U/L Total Protein (6.2-8.2) gm/dL Albumin (3.4-5.0) gm/dl Crossmatch See Detail Laboratory Results WBC 11.7 K/mm3 (4.0-10.5) H 08/12/18 16:20 RBC 2.24 M/mm3 (4.2-5.4) L 08/12/18 16:20 Hgb 7.7 gm/dL (12.5-16.0) L* D 08/12/18 16:20 Hct 23.7 % (37.0-47.0) L* D 08/12/18 16:20 MCV 105.8 fl (78-100) H 08/12/18 16:20 MCH 34.4 pg (27-31) H 08/12/18 16:20 MCHC 32.5 g/dl (32-36) 08/12/18 16:20 RDW 12.4 % (11.5-14.0) 08/12/18 16:20 Plt Count 174 K/mm3 (150-450) 08/12/18 16:20 MPV 9.1 fl (8-12.5) 08/12/18 16:20 Immature Gran % (Auto) 0.70 % (0.001-0.429) H 08/12/18 16:20 Immature Gran # (Auto) 0.08 K/mm3 (0.000-0.0310) H 08/12/18 16:20 Neutrophils % 80.8 % (42-75.0) H 08/12/18 16:20 Lymphocytes % 11.5 % (20-51) L 08/12/18 16:20 Monocytes % 5.5 % (0.0-9) 08/12/18 16:20 Eosinophils % 1.3 % (0.0-3.0) 08/12/18 16:20 Basophils % 0.2 % (0.0-1.0) 08/12/18 16:20 Nucleated RBC % 0.0 k/mm3 (0-1) 08/12/18 16:20 Neutrophils # 9.5 K/mm3 (1.3-6.0) H 08/12/18 16:20 Lymphocytes # 1.34 k/mm3 (1.5-3.5) L 08/12/18 16:20 Monocytes # 0.6 k/mm3 (0.0-1.0) 08/12/18 16:20 Eosinophils # 0.2 k/mm3 (0.0-0.7) 08/12/18 16:20 Absolute Basophils 0.0 k/mm3 (0.0-0.1) 08/12/18 16:20 PT 11.3 Seconds (9.0-11.0) H 08/12/18 16:20 INR (Anticoag Therapy) 1.13 INR (0.90-1.10) H 08/12/18 16:20 PTT ([facility]) 23.8 Seconds (24-32) L 08/12/18 16:20 Sodium 138 mmol/L (132-142) 08/12/18 16:20 Plasma Sodium 139 mmol/L (130-142) 08/12/18 16:20 Potassium 4.3 mmol/L (3.4-4.6) 08/12/18 16:20 Chloride 107 mmol/L (97-106) H 08/12/18 16:20 Carbon Dioxide 24.6 mmol/L (24-32.6) 08/12/18 16:20 Anion Gap 10.7 mmol/L (6.8-13.8) 08/12/18 16:20 BUN 19 mg/dL (3-23) 08/12/18 16:20 Creatinine 1.00 mg/dL (0.4-1.4) 08/12/18 16:20 Est GFR (Non-Af Amer) 56 mL/min (60-130) L 08/12/18 16:20 BUN/Creatinine Ratio 19.0 (9.0-21.6) 08/12/18 16:20 Random Glucose 190 mg/dL (70-110) H 08/12/18 16:20 Calcium 7.3 mg/dL (7.9-10.9) L 08/12/18 16:20 Calcium Adj for Albumin 7.9 mg/dL (8.4-10.2) L 08/12/18 16:20 Total Bilirubin 0.2 mg/dL (0.0-1.1) 08/12/18 16:20 AST 19 U/L (0-48) 08/12/18 16:20 ALT 16 U/L (19-67) L 08/12/18 16:20 Alkaline Phosphatase 56 U/L (50-170) 08/12/18 16:20 Total Protein 5.4 gm/dL (6.2-8.2) L 08/12/18 16:20 Albumin 2.9 gm/dl (3.4-5.0) L 08/12/18 16:20 Blood Type O Positive 08/12/18 Unknown Antibody Screen Negative 08/12/18 Unknown Crossmatch See Detail 08/12/18 Unknown Assessment/Plan - Narrative Narrative: 1. Admit to the SCU 2. Repeat CBC tomorrow morning 3. Monitor wounds, vital signs, and mental status. - Assessment/Plan (1) Hematoma of hip Problem: Acute Qualifiers: (2) Fall (on) (from) other stairs and steps, initial encounter Problem: Acute (3) Hematoma and contusion Problem: Acute (4) Anemia Problem: Acute Qualifiers: Anemia type: other cause Other causes of anemia: acute posthemorrhagic Qualified Code(s): D62 - Acute posthemorrhagic anemia (5) Low back pain Problem: Chronic Qualifiers: Chronicity: acute Back pain laterality: bilateral Sciatica presence: without sciatica Qualified Code(s): M54.5 - Low back pain
[2018-08-12] MEDS ORDERED: HYDROcodone/ACETAMINOPHEN 1 EACH TABLET ONE (21:43)
[2018-08-12] MEDS: POLYETHYLENE GLYCOL 3350 119 GM BTL PO SCH (21:45)
[2018-08-12] MEDS: FAMOTIDINE 20 MG TABLET PO SCH (21:45)
[2018-08-12 21:54] LABS: Anion Gap 12.9 mmol/L (6.8-13.8); BUN/Creatinine Ratio 17.2 (9.0-21.6); Calcium * 7.6 mg/dL (7.9-10.9); Carbon Dioxide 22.2 mmol/L (24-32.6); Estimated Creat Clear 25.5; Potassium 4.1 mmol/L (3.4-4.6)
[2018-08-13] MEDS: MORPHINE SULFATE 2 MG/ML DISP.SYRIN IV PRN ×3 (00:45→19:14)
[2018-08-13] MEDS: NORMAL SALINE 1,000 ML IV ONE (02:09)
[2018-08-13 05:33] LABS: Hematocrit 26.6 % (37.0-47.0); Hemoglobin 8.9 gm/dL (12.5-16.0); Mean Cell Volume 97.4 fl (78-100); Mean Corpuscular Hemoglobin 32.6 pg (27-31); Mean Corpuscular Hgb Conc 33.5 g/dl (32-36); Mean Platelet Volume 9.3 fl (8-12.5); Neutrophil # 4.2 K/mm3 (1.3-6.0); Neutrophil % 63.7 % (42-75.0); Red Blood Count 2.73 M/mm3 (4.2-5.4); White Blood Count 6.6 K/mm3 (4.0-10.5)
[2018-08-13 05:40] LABS: Platelet Count 110 K/mm3 (150-450)
[2018-08-13] MEDS: LEVOTHYROXINE SODIUM 50 MCG TABLET PO SCH (06:52)
[2018-08-13] MEDS: FAMOTIDINE 20 MG TABLET PO SCH ×2 (08:22→21:58)
[2018-08-13] MEDS: ISOSORBIDE MONONITRATE 60 MG TAB.SR.24H PO SCH (08:22)
[2018-08-13] MEDS: TOPIRAMATE 50 MG TABLET PO SCH ×2 (08:22→21:58)
[2018-08-13] MEDS: glipiZIDE 5 MG TABLET PO SCH (08:22)
--- NOTE | 2018-08-13 09:26 | PN ---
Subjective - Date and Time Seen Date: 08/13/18 Time: 08:00 Subjective Narrative: Mrs. Ceballos has had an uneventful night. She is having some head pain from her scalp wounds. She was given hydrocodone and 1 mg of morphine last night she think it helped very much. She remains alert and oriented and conversant. She was feeding herself breakfast this morning. Her dressings are blood-tinged, her scalp. No new injuries have been discovered. She received 2 units of packed red blood cells last night and this morning's hemoglobin was up to 8.9 g from 7.7 g on admission. For frozen plasma 2 units that were given believed helped stop her bleeding. Objective - Review of Systems Generalized/Overall Review: Reports: No Symptoms Reported EENTM: Reports: No Symptoms Reported Respiratory: Reports: No Symptoms Reported Cardiac: Reports: No Symptoms Reported Abdominal: Reports: No Symptoms Reported Genitourinary Symptoms: Reports: No Symptoms Reported Musculoskeletal Complaints: Reports: Joint Pain, Back Pain, Muscle Pain, Neck Pain Neurological: Reports: No Symptoms Reported, Headache Skin: Reports: Bruising, Other - Scalp lacerations that have been primarily closed. Endocrine: Reports: No Symptoms Reported - Vitals Vitals: Last Vital Signs Temp 36.1 C 08/13/18 00:37 Pulse 104 H 08/13/18 08:22 Resp 16 08/13/18 08:00 BP 123/51 08/13/18 08:22 Pulse Ox 100 08/13/18 08:00 - Abnormal Lab Findings Abnormal Lab Findings: Abnormal Lab Results 08/12/18 08/12/18 08/12/18 Range/Units 16:20 16:20 16:20 WBC 11.7 H (4.0-10.5) K/mm3 RBC 2.24 L (4.2-5.4) M/mm3 Hgb 7.7 L* D (12.5-16.0) gm/dL Hct 23.7 L* D (37.0-47.0) % MCV 105.8 H (78-100) fl MCH 34.4 H (27-31) pg RDW (11.5-14.0) % Plt Count (150-450) K/mm3 Immature Gran % (Auto) 0.70 H (0.001-0.429) % Immature Gran # (Auto) 0.08 H (0.000-0.0310) K/mm3 Neutrophils % 80.8 H (42-75.0) % Lymphocytes % 11.5 L (20-51) % Monocytes % (0.0-9) % Neutrophils # 9.5 H (1.3-6.0) K/mm3 Lymphocytes # 1.34 L (1.5-3.5) k/mm3 PT 11.3 H (9.0-11.0) Seconds INR (Anticoag Therapy) 1.13 H (0.90-1.10) INR PTT (Larue) 23.8 L (24-32) Seconds Chloride 107 H (97-106) mmol/L Carbon Dioxide (24-32.6) mmol/L Est GFR (Non-Af Amer) 56 L (60-130) mL/min Random Glucose 190 H (70-110) mg/dL Calcium 7.3 L (7.9-10.9) mg/dL Calcium Adj for Albumin 7.9 L (8.4-10.2) mg/dL ALT 16 L (19-67) U/L Total Protein 5.4 L (6.2-8.2) gm/dL Albumin 2.9 L (3.4-5.0) gm/dl Crossmatch 08/12/18 08/12/18 08/13/18 Range/Units 21:10 Unknown 05:05 WBC (4.0-10.5) K/mm3 RBC 2.73 L (4.2-5.4) M/mm3 Hgb 8.9 L (12.5-16.0) gm/dL Hct 26.6 L (37.0-47.0) % MCV (78-100) fl MCH 32.6 H (27-31) pg RDW 15.0 H (11.5-14.0) % Plt Count 110 L (150-450) K/mm3 Immature Gran % (Auto) (0.001-0.429) % Immature Gran # (Auto) (0.000-0.0310) K/mm3 Neutrophils % (42-75.0) % Lymphocytes % (20-51) % Monocytes % 12.3 H (0.0-9) % Neutrophils # (1.3-6.0) K/mm3 Lymphocytes # (1.5-3.5) k/mm3 PT (9.0-11.0) Seconds INR (Anticoag Therapy) (0.90-1.10) INR PTT (Aniket) (24-32) Seconds Chloride 109 H (97-106) mmol/L Carbon Dioxide 22.2 L (24-32.6) mmol/L Est GFR (Non-Af Amer) 48 L (60-130) mL/min Random Glucose 176 H (70-110) mg/dL Calcium 7.6 L (7.9-10.9) mg/dL Calcium Adj for Albumin (8.4-10.2) mg/dL ALT (19-67) U/L Total Protein (6.2-8.2) gm/dL Albumin (3.4-5.0) gm/dl Crossmatch See Detail - Exam Constitutional: Present: Alert, Oriented x3, Cooperative, Well developed, Well nourished, No distress ENT Exam: Present: normal ENT inspection, hearing grossly normal, pharynx normal , TMs normal Neck: Present: limited range of motion, tender lateral - More on the right side.. Absent: full range of motion Respiratory: Present: lungs clear, normal breath sounds, no respiratory distress , no accessory muscle use Cardiovascular/Chest: Present: normal peripheral pulses, regular rate, rhythm, no chest tenderness, no edema, no gallop, no JVD, no murmur, no rub Abdomen: Present: Normal bowel sounds, soft, nontender, nondistended, no rebound tenderness, no hepatospenomegaly, no masses /Rectal: Present: Exam deferred Extremity: Present: no pedal edema, no calf tenderness, normal capillary refill , pelvis stable, other - Diffuse ecchymosis of the upper extremities, buttocks, and several bruises on lower extremities. Bruising of the back is also noted.. Absent: normal range of motion, non-tender, normal inspection Skin Exam: Present: normal color, warm/dry, no cyanosis - Improved from on admission., other - Diffuse bruising is noted above. Lymphatic: Present: no adenopathy Neurologic: Present: skidder II-XII nml as tested, no motor/sensory deficits, alert , normal mood/affect, oriented x 3, other - She has a intention tremor that interferes a lot with her crying to herself. Appearance: Present: appropriate appearance, appropriate insight, neat Eye contact: Present: cooperative, good eye contact, normal speech Thoughts: Present: normal thought pattern, no apparent hallucination, normal mood /affect Assessment/Plan - Problems/Diagnosis (1) Laceration of scalp with complication Problem: Acute Qualifiers: Encounter type: subsequent encounter Qualified Code(s): S01.01XD - Laceration without foreign body of scalp, subsequent encounter (2) Hematoma of hip Problem: Acute Qualifiers: (3) Fall (on) (from) other stairs and steps, initial encounter Problem: Acute (4) Hematoma and contusion Problem: Acute (5) Anemia Problem: Acute Qualifiers: Anemia type: other cause Other causes of anemia: acute posthemorrhagic Qualified Code(s): D62 - Acute posthemorrhagic anemia (6) Low back pain Problem: Chronic Qualifiers: Chronicity: acute Back pain laterality: bilateral Sciatica presence: without sciatica Qualified Code(s): M54.5 - Low back pain
[2018-08-13] MEDS: HYDROcodone/ACETAMINOPHEN 1 EACH TABLET PO PRN ×2 (11:36→21:58)
[2018-08-13] MEDS ORDERED: HYDROcodone/ACETAMINOPHEN 1 EACH TABLET PO SCH (21:00)
[2018-08-13] MEDS: POLYETHYLENE GLYCOL 3350 119 GM BTL PO SCH (21:58)
[2018-08-14] MEDS: ISOSORBIDE MONONITRATE 60 MG TAB.SR.24H PO SCH ×2 (00:18→09:31)
[2018-08-14] MEDS: MORPHINE SULFATE 2 MG/ML DISP.SYRIN IV PRN (03:18)
[2018-08-14] MEDS: HYDROcodone/ACETAMINOPHEN 1 EACH TABLET PO PRN (07:47)
[2018-08-14] MEDS: glipiZIDE 5 MG TABLET PO SCH (07:47)
[2018-08-14] MEDS: LEVOTHYROXINE SODIUM 50 MCG TABLET PO SCH (07:47)
[2018-08-14] MEDS: TOPIRAMATE 50 MG TABLET PO SCH (09:31)
[2018-08-14] MEDS: FAMOTIDINE 20 MG TABLET PO SCH (09:31)
--- NOTE | 2018-08-14 10:45 | DS ---
(1) Hematoma of hip Problem: Acute Qualifiers: Encounter type: initial encounter (2) Fall (on) (from) other stairs and steps, initial encounter Problem: Acute (3) Hematoma and contusion Problem: Acute (4) Anemia Problem: Acute Qualifiers: Anemia type: other cause Other causes of anemia: acute posthemorrhagic Qualified Code(s): D62 - Acute posthemorrhagic anemia (5) Low back pain Problem: Chronic Qualifiers: Chronicity: acute Back pain laterality: bilateral Sciatica presence: without sciatica Qualified Code(s): M54.5 - Low back pain (6) CKD (chronic kidney disease) stage 3, GFR 30-59 ml/min Problem: Acute Description of Stay: Mrs Ceballos is an 83 yo. wh fe who was admitted to [facility] with multiple body trauma sustained when she fell backwards down a flight of stairs. She was attempting to carry a basket of clothes up the stairs when the door to the upstairs opened and knocked her backwards down the stairs. She sustained large lacerations on the parietal and occipital areas of her scalp. There are large hematomas over the right humerus right flank and buttocks and down to the tibia on the right side. She has bruises on her back. She became hypotensive in ER due to acute blood loss. She dropped her hemoglobin from an average of 11.5 g down to 7.7 g. She was given a unit of fresh frozen plasma which helped with stopping the bleeding. She was then given 2 units of packed red blood cells and that improved her hemoglobin to 8.9 g. She had been on aspirin and Plavix because of coronary disease and 6 stents that she has had placed since 2010. The last stent was placed within the past 2 years but the exact date is unknown. The Plavix and aspirin have been withheld since admission. She was given IV fluid bolus which improved her blood pressure to 120/50. She has been alert and conversational since admission and arrival in the ER. CT scans of the head, trunk, hip and pelvis were all negative for fractures. There is no evidence of intracranial bleeding. Her EGFR is 46 and I believe this is chronic kidney disease stage IIIa which she has had in the past. The wounds on her head have been redressed each day and are now dry. She has been able to sit and stand and transfer to bedside commode. She is able to get up from the bedside commode without assistance. She is sore but her mobility is actually quite good given the trauma that she has sustained. The hematomas seem to be decreasing in size now. I moved her out of the SCU yesterday and to a regular MedSurg room. I spoke with Denice and her family this morning and I have encouraged her to go to rehabilitation for strengthening and balance training and wound care management. I have spoken with in [place] today and he is agreed to accept her into the rehabilitation facility if they have room. I actually think she'll do quite well there. Procedures Performed: see notes below - she did have several lacerations repaired in the emergency room, had fluid resuscitation, fresh frozen plasma, and 2 units of packed red blood cells. Results and Findings: Lab Pending Results 08/12/18 16:20: WBC 11.7 H, RBC 2.24 L, Hgb 7.7 L* D, Hct 23.7 L* D, MCV 105.8 H , MCH 34.4 H, MCHC 32.5, RDW 12.4, Plt Count 174, MPV 9.1, Immature Gran % (Auto ) 0.70 H, Immature Gran # (Auto) 0.08 H, Neutrophils % 80.8 H, Lymphocytes % 11.5 L, Monocytes % 5.5, Eosinophils % 1.3, Basophils % 0.2, Nucleated RBC % 0.0 , Neutrophils # 9.5 H, Lymphocytes # 1.34 L, Monocytes # 0.6, Eosinophils # 0.2 , Absolute Basophils 0.0 08/12/18 16:20: PT 11.3 H, INR (Anticoag Therapy) 1.13 H, PTT (Evangeline) 23.8 L 08/12/18 16:20: Sodium 138, Plasma Sodium 139, Potassium 4.3, Chloride 107 H, Carbon Dioxide 24.6, Anion Gap 10.7, BUN 19, Creatinine 1.00, Est GFR (Non-Af Amer) 56 L, BUN/Creatinine Ratio 19.0, Random Glucose 190 H, Calcium 7.3 L, Calcium Adj for Albumin 7.9 L, Total Bilirubin 0.2, AST 19, ALT 16 L, Alkaline Phosphatase 56, Total Protein 5.4 L, Albumin 2.9 L 08/12/18 21:10: Sodium 140, Plasma Sodium 141, Potassium 4.1, Chloride 109 H, Carbon Dioxide 22.2 L, Anion Gap 12.9, BUN 20, Creatinine 1.16, Est GFR (Non-Af Amer) 48 L, BUN/Creatinine Ratio 17.2, Random Glucose 176 H, Calcium 7.6 L 08/12/18 : Blood Type O Positive, Antibody Screen Negative, Crossmatch See Detail 08/13/18 05:05: WBC 6.6 D, RBC 2.73 L, Hgb 8.9 L, Hct 26.6 L, MCV 97.4, MCH 32.6 H, MCHC 33.5, RDW 15.0 H, Plt Count 110 L, MPV 9.3, Immature Gran % (Auto) 0.20, Immature Gran # (Auto) 0.01, Neutrophils % 63.7, Lymphocytes % 23.1, Monocytes % 12.3 H, Eosinophils % 0.2, Basophils % 0.5, Nucleated RBC % 0.0, Neutrophils # 4.2, Lymphocytes # 1.52, Monocytes # 0.8, Eosinophils # 0.0, Absolute Basophils 0.0 Discharge Location: Other - [facility] inpatient rehabilitation Disposition: Inpatient Rehab Facility Condition: Fair Face to Face Encounter completed per [facility] Guidelines: No Discharge Activity: Activity as tolerated Discharge Diet: General/regular food Detention Therapy: Physicial Therapy, Occupation Therapy Referrals: Everette Thomas DO [Primary Care Provider] - Additional Patient Instructions (free text): To [facility], [facility]. Complete Home Medications List: Complete Home Medication List: Cholecalciferol (Vitamin D3) [Vitamin D3] 1,000 unit PO DAILY 09/01/17 Cyanocobalamin [Vitamin B-12] 1,000 mcg PO DAILY 09/01/17 Folic Acid 1 mg PO DAILY 09/01/17 Isosorbide Mononitrate [Imdur] 60 mg PO BID 09/01/17 Levothyroxine Sodium [Synthroid] 50 mcg PO DAILY 09/01/17 Nitroglycerin [Nitrostat] 0.4 mg SL [id number] PRN 09/01/17 glipiZIDE [Glipizide] 0.5 tab PO DAILY@0700 09/01/17 Calcium Carbonate [Calcium] 600 mg PO DAILY 11/06/17 Topiramate [Topamax] 0.5 tab PO BID 11/06/17 clopidogrel 75 mg tablet 75 mg PO DAILY #30 tab 07/08/18 lovastatin 40 mg tablet 40 mg PO HS #90 tab 07/08/18 Aspirin [Aspirin Enteric Coated] 325 mg PO HS 08/12/18 HYDROcodone/ACETAMINOPHEN [Hydrocodone-Acetamin 5-325 mg] 1 each PO HS 08/12/18 Polyethylene Glycol 3350 [Miralax] 17 g PO HS 08/12/18 ranitidine 150 mg tablet 150 mg PO BID #60 tab 08/12/18 Sennosides/Docusate Sodium [Senokot-S] 2 tab PO HS tablet 08/14/18
[2018-08-14 11:53] VITALS: BP 138/50
[2018-08-14] MEDS ORDERED: SENNOSIDES/DOCUSATE SODIUM 1 TAB TABLET PO SCH ×2 (21:00)
== END 2018-08-14 11:49 | disposition short-term general hospital (02) | DRG 580 ==
LOC: ER 15:02 → MS 15:02 → OBSVTOIN 17:15 → SCU 18:58 → MS 08-13 17:29
PROVIDERS: ADMIT Family Medicine; ATTEND Family Medicine
CPT/HCPCS: 12006; 36415; 36430; 70450; 71260; 72125; 73030; 73502; 74177; 80048; 80053; 85025; 85610; 85730; 86850; 86900; 96361; 96374; 97110; 97116; 97161; 97165; 97535; 99291; 99292; P9016